=== PATIENT | female | born 1945 | race Caucasian/White ===

== ENCOUNTER 2024-05-21 07:46 | Inpatient (IN) | payer MEDICARE, SELFPAY ==
[2024-05-21] VITALS (14 sets, daily range): BP systolic 93–181; BP diastolic 62–130; PULSE 74–132; RESP 16–33; TEMP 36.2–38.7; O2SAT 92–98; BMI 33.0; BMI 31.5
--- NOTE | 2024-05-21 08:09 | EDS_ITS ---
HPI History of Present Illness Chief Complaint: [facility] Social History Smoking Status: Former smoker EXAM Physical Exam Const Vital Signs: 05/21/24 07:47 05/21/24 08:18 Temperature 101.7 F H Temperature Source Oral Pulse Rate 130 H Respiratory Rate 23 H Blood Pressure 150/130 H Blood Pressure Mean 136 Pulse Ox 92 Oxygen Delivery Method Room Air Room Air [facility] [place] N[place] Medical decision making narrative: HISTORY OF PRESENT ILLNESS: 78-year-old female presents concern for right leg redness and swelling. REVIEW OF SYSTEMS: Pertinent positives: Right leg redness and swelling Pertinent negatives: [] PHYSICAL EXAM: Nursing triage notes reviewed, Vital signs reviewed Constitutional: please see mdm HENT: MMM Eyes: Pupils equal round and reactive to light, Extraocular muscles intact Neck: No stridor, no JVD, full neck ROM Lungs: Clear to auscultation, No wheezing or rales. No increased work of breathing, no conversational dyspnea, no accessory muscle use, no nasal flaring. No respiratory distress noted Heart: Regular rate and rhythm, No murmurs, No rubs and No gallops, 2+ distal pulses (radial, femoral, posterior tibial) in all extremities Abdomen: Soft, there is no tenderness, rigidity, rebound or guarding, no obvious peritoneal signs, no palpable pulsatile abdominal masses, no auscultated abdominal bruit : No CVAT Extremities: No edema Neuro: Intact sensation L1-S1 dermatomal distributions. Intact 5/5 strength in hip flexion (T12-L3). Knee extension (L2-L4). Ankle dorsiflexion (L4-L5). Ankle plantar flexion (S1). Great toe extension (L5). 2+ patellar and Achilles DTRs. Skin: No rash or lesions noted MEDICAL DECISION MAKING: Chief Complaint: Right leg redness and swelling External records reviewed: Reviewed allergies, vital signs, home medications Factors affecting care: no records in [facility] Social determinants of health: none [] History obtained from others: none [] Consults: none [] [facility] Narrative: Patient was initially hypertensive with blood pressure 150/130, tachycardic with a pulse of 130, tachypneic with a respiratory 23 and febrile with a temperature of 101.7 saturating 92% on room air I considered the following differential diagnosis: Sepsis, cellulitis, abscess, necrotizing fasciitis I obtained a broad lab and imaging workup to further eluc idate etiology of the patient's Given the patient's initial tachycardia fever or tachypnea sepsis protocol was initiated including a 30 cc/kg bolus of ideal body weight. Lactate, blood and urine cultures were obtained. ALL IMAGES (IF OBTAINED) HAVE BEEN PERSONALLY REVIEWED AND INTERPRETED BY MYSELF. Initial EKG with A-fib with RVR, left axis deviation, no rate related changes with ST changes in inferior leads. No obvious STEMI Repeat EKG approximately 10 minutes later showed no dynamic changes I consulted cardiology at this time given concern for rate related ischemic changes. Discussed with Dr. Ann who noted likely changes rate related. In addition to this patient's history of no chest pain shortness of breath fatigue jaw pain dizziness lightheadedness is not consistent with myocardial ischemia. I suspect at this time the patient's elevated heart rate and rate related changes are secondary to fever and sepsis exacerbating underlying atrial fibrillation rather than a primary cardiac etiology. This should improve once fever is controlled, patient is resuscitated appropriately and antibiotics are started. DVT ultrasound negative X-ray of the right lower extremity of the tibia and fibula read and personally viewed myself shows no evidence of obvious bony abnormality specifically no evidence of osteomyelitis The patient and/or family, caregivers express understanding. The patient and/or family, caregivers agrees with the plan. Shared decision making: I will have a discussion with the patient and or visitors regarding risk/benefits of further testing or admission. They will be made aware of of the risk/benefits inherent in this decision they will be given the opportunity to voice understanding. Total critical care time today provided was at least 0 [] minutes. This excludes separately billable procedures. Critical care time (if documented) is secondary to the patient having high probability of clinically significant/life threatening deterioration in the patient's condition which required my urgent intervention. Impression: 1. Right lower extremity cellulitis 2. Sepsis 3. Dispo: [] This note was generated with [employer] dictation software. It may contain incorrect words, spelling, and punctuation that were not noted in review of the chart prior to signing. Radiography Diagnostic Testing: Clinical Impression(s) from Imaging Studies Tibia/Fibula X-Ray 05/21/24 08:40 IMPRESSION: Mild generalized soft tissue swelling around the calf and ankle. Electronically Signed: Wilfred Hdz MD at 9:15 EDT , Discharge Plan Triage Chief Complaint: Lower Extremity Injury ED Provider: Antelmo Churchill Dx/Rx/DC Orders Primary Care Provider: Jaylen Peralta Referrals: Jaylen Peralta MD [Primary Care Provider] - Print Language: Gabonese
--- NOTE | 2024-05-21 08:09 | EX.ED.DYSGE1 ---
HPI History of Present Illness Chief Complaint: Lower Extremity Injury [facility] Home Medications ?Medication ?Instructions ?Recorded ?Last Taken ?Type apixaban 5 mg tablet (Eliquis) 5 mg PO BID blood thinner 05/21/24 Unknown History diltiazem HCl 120 mg 120 mg PO DAILY blood pressure 05/21/24 Unknown History capsule,extended release 24 hr metoprolol tartrate 50 mg tablet 50 mg PO BID blood pressure 05/21/24 Unknown History torsemide 20 mg tablet 20 mg PO DAILY edema 05/21/24 Unknown History Allergy/AdvReac Type Severity Reaction Status Date / Time No Known Allergies Allergy Verified 05/21/24 12:42 Social History Smoking Status: Former smoker EXAM Physical Exam Const Vital Signs: 05/21/24 07:47 05/21/24 08:18 05/21/24 08:54 Temperature 101.7 F H 99.3 F H Temperature Source Oral Oral Pulse Rate 130 H 132 H Respiratory Rate 23 H 22 H Blood Pressure 150/130 H 181/97 H Blood Pressure Mean 136 125 Pulse Ox 92 93 Oxygen Delivery Method Room Air Room Air Room Air 05/21/24 09:51 05/21/24 09:53 05/21/24 11:00 Temperature 99.2 F H 99.2 F H 99.2 F H Temperature Source Oral Oral Pulse Rate 121 H 112 H 106 H Respiratory Rate 26 H 24 H 24 H Blood Pressure 148/91 H 163/97 H 130/81 H Blood Pressure Mean 110 119 97 Pulse Ox 93 98 93 Oxygen Delivery Method Room Air Room Air [facility] MDM MDM Narrative Medical decision making narrative: HISTORY OF PRESENT ILLNESS: 78-year-old female presents concern for right leg redness and swelling. REVIEW OF SYSTEMS: Pertinent positives: Right leg redness and swelling Pertinent negatives: Vomiting PHYSICAL EXAM: Nursing triage notes reviewed, Vital signs reviewed Constitutional: please see mdm HENT: MMM Eyes: Pupils equal round and reactive to light, Extraocular muscles intact Neck: No stridor, no JVD, full neck ROM Lungs: Clear to auscultation, No wheezing or rales. No increased work of breathing, no conversational dyspnea, no accessory muscle use, no nasal flaring. No respiratory distress noted Heart: Regular rate and rhythm, No murmurs, No rubs and No gallops, 2+ distal pulses (radial, femoral, posterior tibial) in all extremities Abdomen: Soft, there is no tenderness, rigidity, rebound or guarding, no obvious peritoneal signs, no palpable pulsatile abdominal masses, no auscultated abdominal bruit : No CVAT Extremities: No edema Neuro: Intact sensation L1-S1 dermatomal distributions. Intact 5/5 strength in hip flexion (T12-L3). Knee extension (L2-L4). Ankle dorsiflexion (L4-L5). Ankle plantar flexion (S1). Great toe extension (L5). 2+ patellar and Achilles DTRs. Skin: No rash or lesions noted MEDICAL DECISION MAKING: Chief Complaint: Right leg redness and swelling External records reviewed: Reviewed allergies, vital signs, home medications Factors affecting care: no records in [facility] Consults: Internal medicine (Dr. Mccain) [facility] Narrative: Patient was initially hypertensive with blood pressure 150/130, tachycardic with a pulse of 130, tachypneic with a respiratory 23 and febrile with a temperature of 101.7 saturating 92% on room air I considered the following differential diagnosis: Sepsis, cellulitis, abscess, necrotizing fasciitis I obtained a broad lab and imaging workup to further elucidate etiology of the patient's Given the patient's initial tachycardia fever or tachypnea sepsis protocol was initiated (blood cultures, urine urine culture, lactate) including a 30 cc/kg bolus of ideal body weight. Broad-spectrum antibiotics were given empirically (vancomycin and Zosyn) ALL IMAGES (IF OBTAINED) HAVE BEEN PERSONALLY REVIEWED AND INTERPRETED BY MYSELF. Initial EKG with A-fib with RVR, left axis deviation, no rate related changes with ST changes in inferior leads. No obvious STEMI Repeat EKG approximately 10 minutes later showed no dynamic changes. no STEMI I consulted cardiology at this time given concern for rate related ischemic changes. Discussed with Dr. Ann who noted likely changes rate related. In addition to this patient's history of no chest pain shortness of breath fatigue jaw pain dizziness lightheadedness is not consistent with myocardial ischemia. I suspect at this time the patient's elevated heart rate and rate related changes are secondary to fever and sepsis exacerbating underlying atrial fibrillation rather than a primary cardiac etiology. This should improve once fever is controlled, patient is resuscitated appropriately and antibiotics are started. DVT ultrasound negative X-ray of the right lower extremity of the tibia and fibula read and personally reviewed myself shows no evidence of obvious bony abnormality specifically no evidence of osteomyelitis Lactate is wnl indicating no end-organ hypoperfusion and/or hypoxia. CMP with noted hyponatremia, hypokalemia, hypercalcemia Urinalysis shows no evidence of urinary inflammation suggestive of UTI The synthesis of the patient's history, physical exam, labs images suggest likely sepsis from right lower extremity cellulitis. Patient was given broad-spectrum antibiotics. Vital signs improved after initial resuscitation included 30 cc/kg ideal body weight bolus. Patient is admitted to the PCU for further antimicrobial therapy and observation. The patient and/or family, caregivers express understanding. The patient and/or family, caregivers agrees with the plan. Shared decision making: I will have a discussion with the patient and or visitors regarding risk/benefits of further testing or admission. They will be made aware of of the risk/benefits inherent in this decision they will be given the opportunity to voice understanding. Total critical care time today provided was at least 30 minutes. This excludes separately billable procedures. Critical care time (if documented) is secondary to the patient having high probability of clinically significant/life threatening deterioration in the patient's condition which required my urgent intervention. Impression: 1. Right lower extremity cellulitis 2. Sepsis 3. Hypokalemia 4. Hypercalcemia 5. Hyponatremia Dispo: Admit to PCU This note was generated with [employer] dictation software. It may contain incorrect words, spelling, and punctuation that were not noted in review of the chart prior to signing. Lab Data Labs: Laboratory Results - last 24 hr 05/21/24 05/21/24 09:15 09:32 WBC 14.2 H RBC 4.55 Hgb 12.3 Hct 39.8 MCV 87.5 MCH 27.0 MCHC 30.9 L RDW Std Deviation 48.7 H RDW Coeff of Erica 15.3 H Plt Count 273 MPV 8.6 Immature Gran % (Auto) 0.800 Neut % (Auto) 91.7 H Lymph % (Auto) 2.7 L Kerr % (Auto) 4.7 Eos % (Auto) 0.0 Baso % (Auto) 0.1 Absolute Neuts (auto) 13.0 H Absolute Lymphs (auto) 0.38 L Nucleated RBC % 0 PT 24.0 H INR 2.2 APTT 41.5 H Sodium 135 L Potassium 2.8 L Chloride 94 L Carbon Dioxide 33.0 H Anion Gap 8 BUN 12 Creatinine 0.88 Estim Creat Clear Calc 51.38 Est GFR (MDRD) Af Amer 80 Est GFR (MDRD) Non-Af 66 BUN/Creatinine Ratio 13.6 Glucose 151 H Lactic Acid 1.9 Calcium 11.4 H Total Bilirubin 3.70 H Direct Bilirubin 1.32 H AST 30 ALT 37 Alkaline Phosphatase 130 H Total Creatine Kinase 53 Total Protein 6.5 Albumin 3.0 L Globulin 3.5 Albumin/Globulin Ratio 0.9 Urine Color Yellow Urine Clarity Clear Urine pH 7.0 Ur Specific [place] 1.010 Urine Protein Negative Urine Glucose (UA) Normal Urine Ketones 5 H Urine Occult Blood Negative Urine Nitrite Negative Urine Bilirubin Negative Urine Urobilinogen 4 H Ur Leukocyte Esterase Negative Urine RBC 0 SEEN Urine WBC 0 SEEN Ur Squamous Epith Cells 0 SEEN Urine Bacteria 0 SEEN Urine Mucus 0 SEEN Radiography Diagnostic Testing: Clinical Impression(s) from Imaging Studies Chest X-Ray 05/21/24 08:40 IMPRESSION: 1. No acute cardiopulmonary pathology. 2. Small right pleural effusion versus pleural thickening blunting the right costophrenic sulcus. 3. Cardiomegaly. 4. 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 Electronically Signed: Giles De La Rosa MD at 9:28 EDT Reading Location ID and State: [facility] / [place] , Service support , Tibia/Fibula X-Ray 05/21/24 08:40 IMPRESSION: Mild generalized soft tissue swelling around the calf and ankle. Electronically Signed: Wilfred Hdz MD at 9:15 EDT , Discharge Plan Disposition Disposition: Acute Care [facility] Discharge Date/Time: 05/21/24 12:25
--- NOTE | 2024-05-21 08:18 | EKG12_ITS ---
Test Reason : GENERAL Blood Pressure : / mmHG Vent. Rate : 125 BPM Atrial Rate : 000 BPM P-R Int : 000 ms QRS Dur : 100 ms QT Int : 288 ms P-R-T Axes : 000 -11 172 degrees QTc Int : 415 ms Atrial fibrillation with rapid ventricular response Inferior infarct , possibly acute Cannot rule out Anterior infarct , age undetermined Abnormal ECG Confirmed by Jhonatan Lovell ([id number]), primer expeditor and drier HERMINIA ANDERSON ([id number]) on 05/22/2024 9:24:12 AM Referred By: Confirmed By:Jhonatan Lovell
--- NOTE | 2024-05-21 08:18 | VDLE_ITS ---
Reason For Study: Right leg swelling RIGHT GSV is normal. CFV is compressible, spontaneous, competent and demonstrates pulsatile venous flow. FV is compressible, spontaneous, competent and demonstrates pulsatile venous flow. POP V is compressible, spontaneous, competent and demonstrates pulsatile venous flow. T/P Trunk is compressible. PTV is compressible. RT PerV is compressible. Procedure This is a venous duplex using B-mode, color flow and spectral Doppler. Exam performed portable in ED. A preliminary report was called and/or faxed to Dr. Churchill. VL/Venous Duplex US, Unilateral Interpretation Summary Deep veins of the right lower extremity are patent and compressible segmentally . There is no evidence of right lower extremity deep vein thrombosis. The right great sapheno us vein appears patent and compressible segmentally. Ordering Physician: Antelmo Churchill Referring Physician: Jaylen Peralta Performed By: Joy Mckinney RVT
--- NOTE | 2024-05-21 08:22 | NURSING ---
NO OLD EKGS
--- NOTE | 2024-05-21 08:40 | RAD_ITS ---
EXAM: XR CHEST, 1 VIEW CLINICAL INDICATION: sepsis TECHNIQUE: Frontal view of the chest. COMPARISON: No relevant prior studies available. FINDINGS: LUNGS AND PLEURAL SPACES: Mild pulmonary hypoinflation. Possible small right pleural effusion blunting the right posterior sulcus and causing minimal thickening of minor fissure. No pneumothorax. HEART: Cardiomegaly. MEDIASTINUM: Central airways and mediastinal contour are unremarkable. 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 No acute fracture. SOFT TISSUES: Unremarkable. VASCULATURE: Atherosclerotic calcifications along the thoracic aorta. RAD/Chest 1 View (Portable) IMPRESSION: 1. No acute cardiopulmonary pathology. 2. Small right pleural effusion versus pleural thickening blunting the right costophrenic sulcus. 3. Cardiomegaly. 4. 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 Electronically Signed: Giles De La Rosa MD at 9:28 EDT ,
--- NOTE | 2024-05-21 08:40 | RAD_ITS ---
STUDY: X-RAY - RIGHT TIBIA AND FIBULA REASON FOR EXAM: Female, 78 years old. Right leg redness, pain. TECHNIQUE: 3 views of the right tibia and fibula were obtained. COMPARISON: None. FINDINGS: Normal visualized tibia. Normal visualized fibula. There is no demonstrated acute fracture. There is mild generalized soft tissue swelling around the calf and ankle. There are atherosclerotic calcifications. RAD/Tibia & Fibula 2 Views IMPRESSION: Mild generalized soft tissue swelling around the calf and ankle. Electronically Signed: Wilfred Hdz MD at 9:15 EDT ,
--- NOTE | 2024-05-21 08:51 | NURSING ---
NO OLD EKGS
[2024-05-21] MEDS: NORMAL SALINE IV (09:15)
[2024-05-21] MEDS: VIAFLEX IV (09:15)
[2024-05-21] MEDS: Piperacil/Tazobactam 3.375 GM in 0.9% Normal Saline (50mL MB+) 50 ML IV (09:15)
[2024-05-21] MEDS: Acetaminophen 325 MG Tablet 650 MG PO (09:18)
[2024-05-21 09:26] LABS: Absolute Lymphocyte Count 0.38 X10^3/uL (0.83-4.51); Basophil# 0.02 X10^3/uL; Basophil% 0.1 % (0-1); Hematocrit 39.8 % (37-47); Hemoglobin 12.3 g/dL (12.0-15.0); Lymphocyte # 0.38 X10^3/ul (0.83-4.51); Lymphocyte % 2.7 % (19-41); Mean Corp Hgb Conc 30.9 g/dL (32-36); Mean Corpuscular Volume 87.5 fL (81-99); Mean Platelet Vol. 8.6 fl (6.2-12.0); Monocyte# 0.66 X10^3/uL; Monocyte% 4.7 % (0-10); NRBC Flagged by Analyzer 0 % (0-5); Neutrophil # 12.99 X10^3/uL (2.7-7.7); Neutrophil % 91.7 % (47-70); POSITIVE DIFFERENTIAL YES; Platelet Count 273 K/mm3 (150-450); RBC Distribution Width CV 15.3 % (11.6-14.6); RBC Distribution Width SD 48.7 fl (35.1-43.9); Red Blood Count 4.55 M/mm3 (4.2-5.4); White Blood Count 14.2 K/mm3 (4.4-11.0)
--- NOTE | 2024-05-21 09:35 | EKG12_ITS ---
Test Reason : GENERAL Blood Pressure : / mmHG Vent. Rate : 135 BPM Atrial Rate : 119 BPM P-R Int : 000 ms QRS Dur : 100 ms QT Int : 368 ms P-R-T Axes : 000 -03 181 degrees QTc Int : 552 ms Atrial fibrillation with rapid ventricular response Inferior infarct , possibly acute Cannot rule out Anterior infarct , age undetermined Abnormal ECG Confirmed by Jhonatan Lovell ([id number]), associate editor HERMINIA ANDERSON ([id number]) on 05/22/2024 9:24:40 AM Referred By: Confirmed By:Jhonatan Lovell
[2024-05-21 09:41] LABS: International Normalized Ratio 2.2
[2024-05-21 09:42] LABS: Partial Thromboplast Time 41.5 Seconds (24.1-36.2)
[2024-05-21] MEDS: Vancomycin HCl 1,250 MG in 0.9% Normal Saline (250mL Bag) 250 ML 167 MG IV (09:49)
[2024-05-21 09:50] LABS: Bacteria 0 SEEN /hpf (None Seen); Color, Urine Yellow (Yellow); Glucose, Dipstick Normal (Normal); Ketone-Dipstick 5 mg/dl (Negative); Leukocyte Esterase-Dipstick Negative /ul (Negative); Mucous, Urine 0 SEEN /hpf (<or=2+); Nitrite-Dipstick Negative (Negative); Occult Blood-Urine Negative /ul (Negative); Protein-Dipstick Negative (Negative); Red Blood Cells-Urine 0 SEEN /hpf (0-5); Squamous Epithelial Cells - UA 0 SEEN /hpf (5-10); Urine Bilirubin Dipstick Negative (Negative); Urine Clarity Clear (Clear); Urine Urobilinogen 4 mg/dl (Normal); White Blood Cells 0 SEEN /hpf (0-5)
[2024-05-21 09:54] LABS: Lactic Acid 1.9 mmol/L (0.4-1.9)
--- NOTE | 2024-05-21 09:55 | ED.RN ---
LAB CALLED POTASSIUM OF 2.8. DR SERRANO AWARE
[2024-05-21 09:56] LABS: ALB/GLOB Ratio 0.9 RATIO (0.9-2.4); AST(SGOT) 30 U/L (15-37); Alanine Aminotransfer ALT/SGPT 37 U/L (13-56); Alkaline Phosphatase 130 U/L (45-117); Anion Gap 8 (5-15); BUN 12 mg/dL (7-18); BUN/Creat Ratio 13.6 RATIO (10-20); CPK Total, Creatine Kinase 53 U/L (26-192); Calcium,Total 11.4 mg/dL (8.5-10.1); Chloride 94 mmol/L (98-107); Creatinine, Serum 0.88 mg/dL (0.55-1.02); EST Glomerular Filtration Rate 66 mL/min (>60); Est Glom Filt Rate - Afr Amer 80 mL/min (>60); Estimated Creatinine Clearance 51.38 ml/min; Globulin 3.5 g/dL (2.2-4.2); Glucose 151 mg/dL (74-106); Potassium 2.8 mmol/L (3.5-5.1); Protein, Total 6.5 g/dL (6.4-8.2); Sodium Level 135 mmol/L (136-145)
[2024-05-21] MEDS: Potassium Chloride Oral Tablet 20 MEQ 40 MEQ PO (10:03)
--- NOTE | 2024-05-21 11:06 | HP.PCM.HOS_ITS ---
HPI - General General Date of Admission: 05/21/24 Date of Service: 05/21/24 Chief Complaint: right leg redness and swelling HPI Narrative SUSHMA COOPER, is a 78 F with an extensive PMH as outlined who presents via the ED with a complaint of right lower extremity redness and swelling. She said her symptoms had been going on for just one day. She said she was recently admitted at [facility] recently, and said she was admitted there from swelling lower extremities. She says she does not remember the fine details of which she was treated for as she did not really pay much attention. She was discharged home and says she noticed yesterday that she had redness of her right lower extremity. The redness gradually worsened and her leg was also swollen and painful so she came into the ED. She denied any fever or chills, palpitations, nausea or vomiting or any other symptoms. Review of systems otherwise negative. She denied any trauma to her right lower extremity and denies any history of blood clots. Vitals in the ED were BP of 163/97, ND of 112, RR of 24 and temp of 99.2F. She was saturating at 98% on room air. CBC showed wbc of 14.2, Hb of 12.3, platelets of 273. INR was 2.2. Chemistry showed sodium of 135, potassium of 2.8 and bicarb of 33. Cr was 0.88. Total bilirubin was 3.7 and calcium was 11.4. Urinalysis showed no evidence of UTI. Xray of the tibia and fibula showed mild generalised soft tissue swelling around the calf and ankle. CXR showed no acute cardiopulmonary pathology and a small right pleural effusion vs pleural thickening blunting hte right costoprehnic sulcus, as well as cardiomegaly. She is being admitted to be managed for sepsis of the RLE. [facility] Home Medications ?Medication ?Instructions ?Recorded ?Last Taken ?Type apixaban 5 mg tablet (Eliquis) 5 mg PO BID blood thinner 05/21/24 Unknown History diltiazem HCl 120 mg 120 mg PO DAILY blood pressure 05/21/24 Unknown History capsule,extended release 24 hr metoprolol tartrate 50 mg tablet 50 mg PO BID blood pressure 05/21/24 Unknown History torsemide 20 mg tablet 20 mg PO DAILY edema 05/21/24 Unknown History Allergy/AdvReac Type Severity Reaction Status Date / Time No Known Allergies Allergy Verified 05/21/24 12:42 Social History Smoking Status: Former smoker ROS Constitutional Constitutional: Denies anorexia, chills, fatigue, fever(s), malaise or weakness Eyes Eyes: Denies change in vision ENT HEENT: Denies dysphagia or headache(s) Cardiovascular Cardiovascular: Denies chest pain, dyspnea on exertion, edema, lightheadedness, orthopnea, palpitations or paroxysmal nocturnal dyspnea Respiratory/Chest Respiratory/Chest: Denies cough, dyspnea, shortness of breath at rest or shortness of breath with exertion Gastrointestinal Gastrointestinal: Denies constipation, diarrhea, nausea or vomiting Genitourinary Genitourinary: Denies dysuria Musculoskeletal Musculoskeletal: Reports joint swelling; Denies back pain Neurologic Neurologic: Denies confusion, dizziness, focal weakness, headache(s) or numbness Psychiatric Psychiatric: Denies anxiety or depression Endocrine Endocrinology: Denies change in body appearance Hematologic/Lymphatic Hematologic/Lymphatic: Denies anemia Vital Signs Vital Signs Vital Signs: 05/21/24 07:47 05/21/24 08:18 05/21/24 08:54 Temperature 101.7 F H 99.3 F H Temperature Source Oral Oral Pulse Rate 130 H 132 H Respiratory Rate 23 H 22 H Blood Pressure 150/130 H 181/97 H Blood Pressure Mean 136 125 Pulse Ox 92 93 Oxygen Delivery Method Room Air Room Air Room Air 05/21/24 09:51 05/21/24 09:53 Temperature 99.2 F H 99.2 F H Temperature Source Oral Pulse Rate 121 H 112 H Respiratory Rate 26 H 24 H Blood Pressure 148/91 H 163/97 H Blood Pressure Mean 110 119 Pulse Ox 93 98 Oxygen Delivery Method Room Air Weight Weight: 180 lb 5.41 oz Body Mass Index (BMI) 33.0 Physical Exam Const alert, oriented x3 and no apparent distress General Appearance: cooperative HEENT normocephalic, head/scalp atraumatic, hearing grossly normal bilaterally, moist oral mucous membranes and oropharynx normal Mouth: oral and palatal mucosa normal Eyes PERRL, EOMs intact bilaterally and conjunctivae normal Neck no lymphadenopathy and supple Resp normal respiratory effort, no retractions, no use of accessory muscles and clear to auscultation bilaterally Cardio regular rate, regular rhythm, S1 normal heart sound, S2 normal heart sound and no murmurs GI normal to inspection, nondistended, normoactive bowel sounds, soft to palpation, non-tender and non-distended Extremity Extremity Narrative: RLE edematous, has erythema extending from the the ankle to mid kelley; has a few pustular areas; mildly tender to touch. Area outlined Neuro oriented x3, CN's II-XII intact bilaterally and moves all extremities Sensorium / Orientation: awake and alert Motor Exam: strength 5/5 throughout Psych affect normal Results Lab / Micro Data 05/21/24 09:15 05/21/24 09:15 Labs: Laboratory Results - last 24 hr 05/21/24 09:15: WBC 14.2 H, RBC 4.55, Hgb 12.3, Hct 39.8, MCV 87.5, MCH 27.0, M CHC 30.9 L, RDW Std Deviation 48.7 H, RDW Coeff of Erica 15.3 H, Plt Count 273, MPV 8.6, Immature Gran % (Auto) 0.800, Neut % (Auto) 91.7 H, Lymph % (Auto) 2.7 L, [place] % (Auto) 4.7, Eos % (Auto) 0.0, Baso % (Auto) 0.1, Absolute Neuts (auto) 13.0 H, Absolute Lymphs (auto) 0.38 L, Nucleated RBC % 0, PT 24.0 H, INR 2.2, A PTT 41.5 H, Sodium 135 L, Potassium 2.8 L, Chloride 94 L, Carbon Dioxide 33.0 H, Anion Gap 8, BUN 12, Creatinine 0.88, Estim Creat Clear Calc 51.38, Est GFR (MDRD) Af Amer 80, Est GFR (MDRD) Non-Af 66, BUN/Creatinine Ratio 13.6, Glucose 151 H, Lactic Acid 1.9, Calcium 11.4 H, Total Bilirubin 3.70 H, AST 30, ALT 37, Alkaline Phosphatase 130 H, Total Creatine Kinase 53, Total Protein 6.5, Albumin 3.0 L, Globulin 3.5, Albumin/Globulin Ratio 0.9 05/21/24 09:32: Urine Color Yellow, Urine Clarity Clear, Urine pH 7.0, Ur Specific [place] 1.010, Urine Protein Negative, Urine Glucose (UA) Normal, Urine Ketones 5 H, Urine Occult Blood Negative, Urine Nitrite Negative, Urine Bilirubin Negative, Urine Urobilinogen 4 H, Ur Leukocyte Esterase Negative, Urine RBC 0 SEEN, Urine WBC 0 SEEN, Ur Squamous Epith Cells 0 SEEN, Urine Bacteria 0 SEEN, Urine Mucus 0 SEEN Imaging Radiology Impression Chest X-Ray 05/21/24 08:40 IMPRESSION: 1. No acute cardiopulmonary pathology. 2. Small right pleural effusion versus pleural thickening blunting the right costophrenic sulcus. 3. Cardiomegaly. 4. 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 Electronically Signed: Giles De La Rosa MD at 9:28 EDT , Tibia/Fibula X-Ray 05/21/24 08:40 IMPRESSION: Mild generalized soft tissue swelling around the calf and ankle. Electronically Signed: Wilfred Hdz MD at 9:15 EDT , Assessment & Plan Assessment/Plan (1) Sepsis: QUALIFIERS: Sepsis acute organ dysfunction status: without acute organ dysfunction (2) Cellulitis of leg, right: PLAN: Plan #Sepsis due to cellulitis of the RLE * was tachypneic, febrile and tachycardic on admission. HR was up in the 130s systolic. She was also tachypneic * wbc is 14.2. * admit to PCU * after she was hydrated with IVF, her symptoms had resolved. * start on IV vancomycin. * get wound and blood cultures * cellulitic area outlined. * hydrate with IVF NS @ 125cc/hr * she is already on blood thinners; INR is 2.2, so low suspicion for DVT * #Cellulitis of the RLE: as above #Abnormal EKG * EKG done on admission showed some ST elevations in the inferior leads it was read as critical alert ST elevated [place]. ED doctor did discuss with the field placement director Dr Ann who reviewed the images and did not think that patient had ST elevation [place] of the inferior region. * Patient also denies any chest pain. Will check troponins and cycle. * #Hypokalemia: Potassium was 2.8. Replace aggressively and trend. #Elevated bilirubin * Total bilirubin is 3.7 and is mainly a direct bilirubinemia which is 1.32. AST and ALT are within normal limits though ALP slightly elevated at 130. * She denies any history of any liver disease. Will check hepatitis panel and liver ultrasound. * Will trend liver enzymes. Hold all hepatotoxic medications. * #Atrial fibrillation: on metoprolol and cardizem. On eliquis. Will continue DVT prophylaxis; already on eliquis Code status: full code * Patient counseled extensively about different types of CODE STATUS including full code, DNR CCA and DNR CCA. * Patient elects to be full code. * Total [id number] time 17 minutes. Charges/Coding Visit Charges Inpatient E&M: 37272 Init Hosp L3 Procedures Hospitalists Procedures: 08818 Advncd Care Plan 30 Min
--- NOTE | 2024-05-21 13:22 | US_ITS ---
STUDY: ABDOMINAL ULTRASOUND - RIGHT UPPER QUADRANT REASON FOR VISIT: Female, 78 years old elevated liver enzymes TECHNIQUE: Ultrasound evaluation of the right upper quadrant was performed with real-time and static lang-scale imaging. TECHNICAL QUALITY: Adequate. COMPARISON: None. FINDINGS: Liver: The liver measures 16.1 cm. There is normal echogenicity of the liver. The bile ducts are within normal limits. There is hepatic color flow. The direction of portal flow is hepatopetal. There is no demonstrated mass lesion. Gallbladder: Normal distended gallbladder. The gallbladder wall measures 2 mm. There is a negative sonographic Neves''s sign. There is no pericholecystic fluid. There are multiple echogenic structures within the gallbladder, consistent with multiple gallstones. Common Bile Duct (C.B.D.): The common bile duct measures 7 mm. Pancreas: Normal size of the head, body and tail of the pancreas. There is normal echogenicity of the pancreas. There is no demonstrated pancreatic mass or cyst. Right Kidney: Normal size of the right kidney. The right kidney measures 12.1 cm. Normal renal cortex. The right cortex measures 1.4 cm. There is no demonstrated renal mass or cyst. There is no right hydronephrosis. US/Liver IMPRESSION: Cholelithiasis. Electronically Signed: Antonio Funez MD at 13:01 EDT ,
[2024-05-21] MEDS: 0.9% Normal Saline (1000mL) 1,000 ML 125 ML IV (13:52)
[2024-05-21] MEDS: 0.9% Saline Lock 10 ML Syringe IV (13:52)
[2024-05-21] MEDS: Vancomycin HCl 750 MG in 0.9% Normal Saline (250mL Bag) 250 ML 250 MG IV (13:55)
[2024-05-21 14:02] LABS: Bilirubin, Direct 1.32 mg/dL (0.00-0.30)
--- NOTE | 2024-05-21 14:25 | PCM.RX.CS ---
Consult Antibiotic Management Pharmacy has been consulted to manage selected antibiotic: Vancomycin Type of Intervention Type of Consult: New start Suspected Infection Suspected Infection: Sepsis and Skin/Soft tissue Prior Doses of Antibiotics Prior Doses of Antibiotics Received/Current Regimen: received vanc 1250mg IV x1 in E.R. starting at 09:49 today Labs Labs: Sodium 135 mmol/L (136-145) L 05/21/24 09:15 Potassium 2.8 mmol/L (3.5-5.1) L 05/21/24 09:15 Chloride 94 mmol/L (98-107) L 05/21/24 09:15 Carbon Dioxide 33.0 mmol/L (21.0-32.0) H 05/21/24 09:15 Anion Gap 8 (5-15) 05/21/24 09:15 BUN 12 mg/dL (7-18) 05/21/24 09:15 Creatinine 0.88 mg/dL (0.55-1.02) 05/21/24 09:15 Est GFR (MDRD) Af Amer 80 mL/min (>60) 05/21/24 09:15 Est GFR (MDRD) Non-Af 66 mL/min (>60) 05/21/24 09:15 BUN/Creatinine Ratio 13.6 RATIO (10-20) 05/21/24 09:15 Glucose 151 mg/dL (74-106) H 05/21/24 09:15 Dosing Weight Weight used for dosin.7 kg Estimated Creatinine Clearance Estimated Creatinine Clearance: 51 ml/min Goal Trough Goal Trough: 15-20 mcg/mL Pharmacy Plan for Drug Dosing Pharmacy Plan for Drug Dosing: A load initial dose (25mg/kg) was ordered which would have been 2000mg. However, the patient already received 1250mg IV x1 in E.R. so will start the maintenance dose of 750mg IV q12h as soon as possible to make up the difference for the initial dose total of 2000mg. Will order a trough to be drawn before the 4th dose of 750mg. Pharmacy Service will continue to monitor and adjust dosing as required. Follow-Up Labs Follow-Up Labs: Trough: Vancomycin Date/Time Labs Ordered Labs to be done on [date and time ordered]: 05/23/24 01:30
[2024-05-21] MEDS: Metoprolol Tartrate 50 MG Tablet PO (16:34)
--- NOTE | 2024-05-21 17:18 | NURSING ---
PICC placement in progress
[2024-05-21] MEDS: Morphine 2 MG/ML Syringe IV (17:40)
--- NOTE | 2024-05-21 17:50 | RAD_ITS ---
STUDY: X-RAY CHEST REASON FOR EXAM: Female, 78 years old. PICC placement TECHNIQUE: Single AP portable view of the chest. COMPARISON: May 21, 2024, earlier the same day FINDINGS: PICC on the right extends to the right atrium. There is right lower lung atelectasis. There is small right pleural effusion. There is moderate cardiac enlargement. Normal mediastinum and mitra. Normal visualized pulmonary arteries. Normal visualized aortic arch and descending thoracic aorta. There is demineralization of the osseous structures. There is degenerative change of the spine and right shoulder. There is no demonstrated abnormality of the visualized soft tissue structures of the upper abdomen. RAD/CXR for Line Placement IMPRESSION: Catheter placement. No pneumothorax. Right lower lung atelectasis and small pleural effusion. Electronically Signed: Alvaro Kramer MD at 18:48 EDT ,
[2024-05-21] MEDS: APIXABAN 5 MG TABLET PO (20:18)
[2024-05-22] MEDS: 0.9% Normal Saline (1000mL) 1,000 ML 125 ML IV ×3 (00:33→21:55)
[2024-05-22] MEDS: Vancomycin HCl 750 MG in 0.9% Normal Saline (250mL Bag) 250 ML 250 MG IV ×2 (00:59→13:59)
[2024-05-22 03:00] VITALS: BP 130/70; PULSE 74; RESP 18; TEMP 36.4; O2SAT 93
[2024-05-22 06:52] LABS: Absolute Neutrophil Count 10.5 X10^3/uL (2.0-7.7); Basophil# 0.02 X10^3/uL; Basophil% 0.1 % (0-1); Hematocrit 35.5 % (37-47); Hemoglobin 10.9 g/dL (12.0-15.0); Lymphocyte % 8.2 % (19-41); Mean Corp Hgb Conc 30.7 g/dL (32-36); Mean Corpuscular Volume 88.1 fL (81-99); Mean Platelet Vol. 9.6 fl (6.2-12.0); Monocyte# 1.64 X10^3/uL; Monocyte% 12.2 % (0-10); NRBC Flagged by Analyzer 0 % (0-5); Neutrophil # 10.53 X10^3/uL (2.7-7.7); Neutrophil % 78.5 % (47-70); POSITIVE DIFFERENTIAL YES; Platelet Count 296 K/mm3 (150-450); RBC Distribution Width CV 15.4 % (11.6-14.6); RBC Distribution Width SD 49.8 fl (35.1-43.9); Red Blood Count 4.03 M/mm3 (4.2-5.4); White Blood Count 13.4 K/mm3 (4.4-11.0)
[2024-05-22 06:54] LABS: Differential Indicated SCAN CRITERIA MET
[2024-05-22 07:19] LABS: Anion Gap 7 (5-15); BUN 23 mg/dL (7-18); BUN/Creat Ratio 15.5 RATIO (10-20); Calcium,Total 9.9 mg/dL (8.5-10.1); Chloride 101 mmol/L (98-107); Creatinine, Serum 1.48 mg/dL (0.55-1.02); EST Glomerular Filtration Rate 36 mL/min (>60); Est Glom Filt Rate - Afr Amer 44 mL/min (>60); Estimated Creatinine Clearance 31.01 ml/min; Glucose 116 mg/dL (74-106); Potassium 3.7 mmol/L (3.5-5.1); Sodium Level 135 mmol/L (136-145)
[2024-05-22 08:18] LABS: AST(SGOT) 47 U/L (15-37); Alanine Aminotransfer ALT/SGPT 41 U/L (13-56); Albumin, Serum 2.3 g/dL (3.2-5.0); Alkaline Phosphatase 113 U/L (45-117); Bilirubin, Direct 0.62 mg/dL (0.00-0.30); Globulin 3.2 g/dL (2.2-4.2); Protein, Total 5.5 g/dL (6.4-8.2)
[2024-05-22 09:41] LABS: Differential Comment SCANNED
[2024-05-22 09:42] LABS: Platelet Estimate ADEQUATE (ADEQ); Red Cell Morphology NORM C+C NORMAL (NORM C&C)
[2024-05-22 09:55] VITALS: BP 148/93; PULSE 95; RESP 16; TEMP 36.3; O2SAT 95
[2024-05-22 09:56] VITALS: BP 148/93; PULSE 95
[2024-05-22] MEDS: Metoprolol Tartrate 50 MG Tablet PO ×2 (09:56→20:38)
[2024-05-22] MEDS: Furosemide 40 MG Tablet PO (09:57)
[2024-05-22] MEDS: APIXABAN 5 MG TABLET PO ×2 (09:57→20:39)
[2024-05-22] MEDS: dilTIAZem CD 120 MG Capsule PO (09:57)
--- NOTE | 2024-05-22 10:04 | WOUNDNOTE ---
Was asked to see patient for redness to the right lower leg. there is some serous drainage noted on the chux pad under the leg. do not see any open area to culture at this time. pt states the she just got a new Corgi puppy. pt states the puppy will sometimes scratch her leg. there is some redness noted to the right lower leg that appears to be improving according to the skin markings. pt with moderate edema bilaterally. gently washed legs with soap and water. pat dry. applied TIMO wraps to bilateral lower legs. pt tolerated well.
--- NOTE | 2024-05-22 10:26 | WOUNDNOTE ---
wound photo: right lower leg
--- NOTE | 2024-05-22 10:36 | PN_ITS ---
Subjective Subjective Patient seen and examined. She says she feels much better. She felt the redness of her RLE had improved. Review of systems was otherwise negative. Objective Data Objective Data Vital Signs: Vital Signs Temp Pulse Resp BP Pulse Ox O2 Del Method 97.3 F L 95 16 148/93 H 95 Room Air 05/22/24 09:55 05/22/24 09:56 05/22/24 09:55 05/22/24 09:56 05/22/24 09:55 05/22/24 09:55 Oxygen Delivery Method Room Air Weight: 177 lb 15.984 oz Body Mass Index (BMI) 31.5 Intake & Output: Intake and Output for Last 24 Hours 05/20/24 05/21/24 05/22/24 23:59 23:59 23:59 Intake Total 1941. / 965 / 965 Balance 965 / 965 Lab / Micro Data 05/22/24 06:11 05/22/24 06:11 Labs: Laboratory Results - last 24 hr 05/21/24 09:15: Direct Bilirubin 1.32 H 05/22/24 06:11: WBC 13.4 H, RBC 4.03 L, Hgb 10.9 L, Hct 35.5 L, MCV 88.1, MCH 27.0, MCHC 30.7 L, RDW Std Deviation 49.8 H, RDW Coeff of Erica 15.4 H, Plt Count 296, MPV 9.6, Immature Gran % (Auto) 1.000 H, Neut % (Auto) 78.5 H, Lymph % (Auto) 8.2 L, [place] % (Auto) 12.2 H, Eos % (Auto) 0.0, Baso % (Auto) 0.1, A bsolute Neuts (auto) 10.5 H, Absolute Lymphs (auto) 1.10, Nucleated RBC % 0, Differential Comment SCANNED, Diff Path Review December, Platelet Estimate ADEQUATE, RBC Morphology NORM C+C, Sodium 135 L, Potassium 3.7, Chloride 101, Carbon Dioxide 27.0, Anion Gap 7, BUN 23 H, Creatinine 1.48 H, Estim Creat Clear Calc 31.01, Est GFR (MDRD) Af Amer 44 L, Est GFR (MDRD) Non-Af 36 L, BUN/Creatinine Ratio 15.5, Glucose 116 H, Calcium 9.9, Total Bilirubin 2.00 H, D irect Bilirubin 0.62 H, AST 47 H, ALT 41, Alkaline Phosphatase 113, Total Protein 5.5 L, Albumin 2.3 L, Globulin 3.2 Radiography Diagnostic Testing: Radiology Impression Venous Doppler Study 05/21/24 08:18 Interpretation Summary Deep veins of the right lower extremity are patent and compressible segmentally. There is no evidence of right lower extremity deep vein thrombosis. The right great saphenous vein appears patent and compressible segmentally. Ordering Physician: Antelmo Churchill Referring Physician: Jaylen Peralta Performed By: Joy Mckinney, [place] Chest X-Ray 05/21/24 17:50 IMPRESSION: Catheter placement. No pneumothorax. Right lower lung atelectasis and small pleural effusion. Electronically Signed: Alvaro Kramer MD at 18:48 EDT , Physical Exam Const alert, oriented x3 and no apparent distress General Appearance: cooperative HEENT normocephalic, head/scalp atraumatic, hearing grossly normal bilaterally, moist oral mucous membranes and oropharynx normal Eyes PERRL, EOMs intact bilaterally and conjunctivae normal Neck no lymphadenopathy and supple Resp normal respiratory effort, normal air movement, no retractions, no use of accessory muscles and clear to auscultation bilaterally Cardio regular rate, regular rhythm, S1 normal heart sound, S2 normal heart sound and no murmurs GI normal to inspection, nondistended, normoactive bowel sounds, soft to palpation, non-tender and non-distended Extremity Extremity Narrative: RLE edema and redness as well as swelling has improved slightly; it extends from the the ankle to mid kelley; has a few pustular areas; mildly tender to touch. Area outlined Skin Skin Narrative: as under extremities Neuro oriented x3, CN's II-XII intact bilaterally and moves all extremities Sensorium / Orientation: awake and alert Motor Exam: strength 5/5 throughout Psych affect normal Appearance: appropriate Assessment & Plan Assessment/Plan (1) Sepsis: QUALIFIERS: Sepsis acute organ dysfunction status: without acute organ dysfunction (2) Cellulitis of leg, right: PLAN: Plan #Sepsis due to cellulitis of the RLE * WBC has trended down slightly today to 13.4 from 14.2 on admission. * Swelling has improved slightly. Continue IV vancomycin * Apply Bridger wraps to lower extremity * Duplex of lower extremities showed no evidence of DVT * #Cellulitis of the RLE: as above #Abnormal EKG * EKG done on admission showed some ST elevations in the inferior leads it was read as critical alert ST elevated [place]. ED doctor did discuss with the legal paraprofessional Dr Ann who reviewed the images and did not think that patient had ST elevation [place] of the inferior region. * Patient also denies any chest pain. * will monitor * #Hypokalemia: resolved. Potassium is 3.7. #Elevated bilirubin * total bilirubin is down to 2,. from 3.7 yesterday. * Direct biliruibin is also down to 0.62. * hepatitis panel pending. * liver ultrasound done, read is pending. * * #Atrial fibrillation: on metoprolol and cardizem. On eliquis. DVT prophylaxis; already on eliquis Code status: full code * Charges/Coding Visit Charges Inpatient E&M: 09865 Subs Hosp L2
--- NOTE | 2024-05-22 11:40 | CASEMGMT ---
WILL LOGAN Assessment: Face to Face with pt for initial transition planning/care coordination assessment. WILL LOGAN introduced self and role at [facility], pt voices understanding and consents to assessment. Pt is A&O x3 and answers most questions appropriately at this time. Pt did discuss being in the hospital longer than she actually has been and as RN DESMOND had more communication with pt noted that pt may some confusion. Pt states she is very upset as someone stated she had Alzheimers lastnight and she reacted to this. Pt states she does not have Alzheimers, she just has a fun life . Care providers, pharmacy, and demographics verified/updated. Admitting Dx: sepsis Strata Score: 1 PCP:Fabian Specialists:Denies Preferred Pharmacy:[facility] Insurance: [employer] Prescription Benefit: yes LNOK: Macey Brown, dtr Living Arrangements: Pt lives with dtr in a single story home with a ramp to enter in the front. Pt states that she is I in ADLs and shares IADL tasks with her dtr. 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 Pt denies concerns at home. Transportation: Pt drives self short distances and denies concerns with transportation. Pt dtr also transports pt. DME:shower chair, 3 canes and standard walker HHC/SNF: Denies hx of Pt states no concerns with going home at time of dc. Noted board stated pt was a 2 assist. Pt states she can ambulate but has not been oob. Therapy is ordered to see pt. Pt denies having any open wounds with her cellulitis. Pt states no further concerns/needs. CM to follow. Advised pt to ask CM if any further question/concerns/needs arise, voices understanding. Handoff given to PAYABLE MANAGER CM. Pt Goal: Home Plan: Home pending therapy evals and recommendations Chelsea SOLIS CM
[2024-05-22] MEDS: 0.9% Saline Lock 10 ML Syringe IV (14:08)
[2024-05-22 16:02] VITALS: BP 131/78; PULSE 70; RESP 16; TEMP 36.4; O2SAT 95
[2024-05-22 20:32] VITALS: BP 130/80; PULSE 68; RESP 14; TEMP 36.7; O2SAT 94
[2024-05-22 20:38] VITALS: PULSE 70
[2024-05-22] MEDS: Vancomycin Trough/Random Due 1 LAB MC (21:56)
[2024-05-23] VITALS (7 sets, daily range): BP systolic 110–147; BP diastolic 68–97; PULSE 70–84; RESP 15–21; TEMP 36.4–36.7; O2SAT 95–97
[2024-05-23 02:01] LABS: Vancomycin, Trough Level 29.8 ug/mL (5.0-15.0)
--- NOTE | 2024-05-23 02:37 | PCM.RX.CS ---
Consult Antibiotic Management Pharmacy has been consulted to manage selected antibiotic: Vancomycin Type of Intervention Type of Consult: Follow-up Suspected Infection Suspected Infection: Sepsis Labs Labs: Sodium 135 mmol/L (136-145) L 05/22/24 06:11 Potassium 3.7 mmol/L (3.5-5.1) 05/22/24 06:11 Chloride 101 mmol/L (98-107) 05/22/24 06:11 Carbon Dioxide 27.0 mmol/L (21.0-32.0) 05/22/24 06:11 Anion Gap 7 (5-15) 05/22/24 06:11 BUN 23 mg/dL (7-18) H 05/22/24 06:11 Creatinine 1.48 mg/dL (0.55-1.02) H 05/22/24 06:11 Est GFR (MDRD) Af Amer 44 mL/min (>60) L 05/22/24 06:11 Est GFR (MDRD) Non-Af 36 mL/min (>60) L 05/22/24 06:11 BUN/Creatinine Ratio 15.5 RATIO (10-20) 05/22/24 06:11 Glucose 116 mg/dL (74-106) H 05/22/24 06:11 Vancomycin Trough 29.8 ug/mL (5.0-15.0) H 05/23/24 01:30 Microbiology Microbiology: Microbiology 05/21/24 09:32 Urine, Random Urine Culture - Preliminary Culture exhibits no growth. Goal Trough Goal Trough: 15-20 mcg/mL Pharmacy Plan for Drug Dosing Pharmacy Plan for Drug Dosing: VANCOMYCIN LEVEL RECEIVED Current Vancomycin Dose: 750mg Q12H Number of Doses Received: 750mg x3 Vancomycin Level: 29.8 Hours Since Last Dose: 11.5 Renal Function: sCr 1.48 Renal Function Trend: sCr elevated since admission Lab/Micro: pending Vancomycin Plan/Comments: HOLD Vancomycin due to SUPRAtherapeutic trough Pending Level: Random Vancomycin level with AM labs 05/24/24 Pharmacy Service will continue to monitor and adjust dosing as required. Date/Time Labs Ordered Labs to be done on [date and time ordered]: Random Vancomycin level @ 0600 05/24/24
[2024-05-23 06:14] LABS: Absolute Lymphocyte Count 1.13 X10^3/uL (0.83-4.51); Absolute Neutrophil Count 10.8 X10^3/uL (2.0-7.7); Basophil# 0.02 X10^3/uL; Basophil% 0.1 % (0-1); Eosinophil# 0.01 X10^3/uL; Eosinophils% 0.1 % (0-5); Hematocrit 32.4 % (37-47); Hemoglobin 9.9 g/dL (12.0-15.0); Lymphocyte # 1.13 X10^3/ul (0.83-4.51); Lymphocyte % 8.4 % (19-41); Mean Corp Hgb Conc 30.6 g/dL (32-36); Mean Corpuscular Hgb 27.3 pg (27.0-32.0); Mean Corpuscular Volume 89.5 fL (81-99); Mean Platelet Vol. 9.2 fl (6.2-12.0); Monocyte# 1.41 X10^3/uL; Monocyte% 10.4 % (0-10); NRBC Flagged by Analyzer 0 % (0-5); Neutrophil # 10.75 X10^3/uL (2.7-7.7); Neutrophil % 79.5 % (47-70); Platelet Count 321 K/mm3 (150-450); RBC Distribution Width CV 15.4 % (11.6-14.6); RBC Distribution Width SD 50.2 fl (35.1-43.9); Red Blood Count 3.62 M/mm3 (4.2-5.4); White Blood Count 13.5 K/mm3 (4.4-11.0)
[2024-05-23 06:41] LABS: Anion Gap 7 (5-15); BUN 37 mg/dL (7-18); BUN/Creat Ratio 16.1 RATIO (10-20); Calcium,Total 8.5 mg/dL (8.5-10.1); Chloride 109 mmol/L (98-107); EST Glomerular Filtration Rate 22 mL/min (>60); Est Glom Filt Rate - Afr Amer 26 mL/min (>60); Estimated Creatinine Clearance 19.96 ml/min; Glucose 119 mg/dL (74-106); Potassium 3.1 mmol/L (3.5-5.1); Sodium Level 138 mmol/L (136-145)
--- NOTE | 2024-05-23 08:25 | US_ITS ---
INDICATION: LOKI EXAMINATION: Ultrasound US Kidney(s) complete (eg, kidneys and bladder) TECHNIQUE: Germain scale and color doppler images were obtained of the kidneys. COMPARISON: No relevant prior comparison study available FINDINGS: RIGHT KIDNEY: The right kidney measures 11.8 cm in length. There is no hydronephrosis. There is trace perinephric fluid. No shadowing calculus, focal lesion or perinephric collection is demonstrated. LEFT KIDNEY: The left kidney measures 10.9 cm in length. There is no hydronephrosis. There is a 1.1 x 1.0 cm left renal cyst. There is trace perinephric fluid. No shadowing calculus or perinephric collection is demonstrated. URINARY BLADDER: The urinary bladder volume measures 381 cc. No acute abnormality. US/Kidney and Bladder IMPRESSION: No hydronephrosis. 1.1 x 1.0 cm left renal cyst. Electronically Signed: Sumi Tsai MD at 13:58 EDT ,
[2024-05-23 09:48] LABS: Pathologist Review Reviewed
[2024-05-23] MEDS: Metoprolol Tartrate 50 MG Tablet PO ×2 (10:07→21:10)
[2024-05-23] MEDS: APIXABAN 5 MG TABLET PO ×2 (10:11→21:10)
[2024-05-23] MEDS: Potassium Chloride Oral Tablet 20 MEQ 40 MEQ PO (10:12)
[2024-05-23] MEDS: dilTIAZem CD 120 MG Capsule PO (10:12)
[2024-05-23] MEDS: 0.9% Normal Saline (1000mL) 1,000 ML 125 ML IV ×2 (10:33→19:30)
--- NOTE | 2024-05-23 11:32 | PN_ITS ---
Subjective Subjective Patient seen and examined. She says she feels well today and was hoping to go home. Review of systems otherwise negative. However her creatinine has trended up was 2.3 today. Her bank trough is also elevated at 29. Vancomycin discontinued. Objective Data Objective Data Vital Signs: Vital Signs Temp Pulse Resp BP Pulse Ox O2 Del Method 97.5 F L 84 20 H 132/82 H 97 Room Air 05/23/24 08:15 05/23/24 10:07 05/23/24 08:15 05/23/24 10:07 05/23/24 08:15 05/23/24 08:15 Oxygen Delivery Method Room Air Weight: 177 lb 15.984 oz Body Mass Index (BMI) 31.5 Intake & Output: Intake and Output for Last 24 Hours 05/21/24 05/22/24 05/23/24 23:59 23:59 23:59 Intake Total 1941.1941.08 2945 / 2945 1060 / 1060 Output Total 100 / 100 Balance 1941.1941.08 2945 / 2945 960 / 960 Lab / Micro Data 05/23/24 06:01 05/23/24 06:01 Labs: Laboratory Results - last 24 hr 05/22/24 06:11: Diff Path Review Reviewed 05/23/24 01:30: Vancomycin Trough 29.8 H 05/23/24 06:01: WBC 13.5 H, RBC 3.62 L, Hgb 9.9 L, Hct 32.4 L, MCV 89.5, MCH 27.3, MCHC 30.6 L, RDW Std Deviation 50.2 H, RDW Coeff of Erica 15.4 H, Plt Count 321, MPV 9.2, Immature Gran % (Auto) 1.500 H, Neut % (Auto) 79.5 H, Lymph % (Auto) 8.4 L, Bell % (Auto) 10.4 H, Eos % (Auto) 0.1, Baso % (Auto) 0.1, A bsolute Neuts (auto) 10.8 H, Absolute Lymphs (auto) 1.13, Nucleated RBC % 0, Sodium 138, Potassium 3.1 L, Chloride 109 H, Carbon Dioxide 23.0, Anion Gap 7, B UN 37 H, Creatinine 2.30 H, Estim Creat Clear Calc 19.96, Est GFR (MDRD) Af Amer 26 L, Est GFR (MDRD) Non-Af 22 L, BUN/Creatinine Ratio 16.1, Glucose 119 H, Calcium 8.5 Micro: Microbiology 05/21/24 09:32 Urine, Random Urine Culture - Final Culture exhibits no growth. 05/21/24 09:15 Blood Culture (Wb) - Anticubital Left Blood Culture - Preliminary No growth in 48 hours. Physical Exam Const alert, oriented x3 and no apparent distress General Appearance: cooperative HEENT normocephalic, head/scalp atraumatic, hearing grossly normal bilaterally, moist oral mucous membranes and oropharynx normal Eyes PERRL, EOMs intact bilaterally and conjunctivae normal Neck no lymphadenopathy and supple Resp normal respiratory effort, normal air movement, no retractions, no use of accessory muscles and clear to auscultation bilaterally Cardio regular rate, regular rhythm, S1 normal heart sound, S2 normal heart sound and no murmurs GI normal to inspection, nondistended, normoactive bowel sounds, soft to palpation, non-tender and non-distended Extremity Extremity Narrative: both LEs wrapped in bandage Skin Skin Narrative: as under extremities Neuro oriented x3, CN's II-XII intact bilaterally and moves all extremities Sensorium / Orientation: awake and alert Motor Exam: strength 5/5 throughout Psych affect normal Appearance: appropriate Assessment & Plan Assessment/Plan (1) Sepsis: QUALIFIERS: Sepsis acute organ dysfunction status: without acute organ dysfunction (2) Cellulitis of leg, right: PLAN: Plan #Sepsis due to cellulitis of the RLE * WBC today is 13.5. * Swelling has improved slightly. Continue IV vancomycin * Apply Bridger wraps to lower extremity * Duplex of lower extremities showed no evidence of DVT * Patient did appear to have some pustular areas of the lower extremity. With as below drainage of pus in the area of the culture. Will place patient on IV Unasyn. #LOKI * Creatinine today is up to 2.3. Was 1.48 yesterday. Vancomycin trough level was also elevated at 29.8 * This is likely the cause of the worsening of the kidney function. Vancomycin discontinued. * Hydrate gently with IV fluids. Check urine electrolytes and renal ultrasound but read is pending. * Trend creatinine and if it goes upwards further we will consult nephrology * #Cellulitis of the RLE: as above #Abnormal EKG * EKG done on admission showed some ST elevations in the inferior leads it was read as critical alert ST elevated MD. ED doctor did discuss with the marketing project manager Dr Ann who reviewed the images and did not think that patient had ST elevation MD of the inferior region. * Patient also denies any chest pain. * will monitor * #Hypokalemia: resolved. Potassium is 3.7. #Elevated bilirubin * liver profile is pending today * hepatitis panel is still pending. * liver ultrasound done, read is pending. * * #Atrial fibrillation: on metoprolol and cardizem. On eliquis. DVT prophylaxis; already on eliquis Code status: full code * Charges/Coding Visit Charges Inpatient E&M: 95928 Subs Hosp L2
--- NOTE | 2024-05-23 11:39 | WOUNDNOTE ---
In to reassess bilateral lower legs. there was a moderate amount of serous drainage noted from the right lower leg. the redness has improved. still no open areas noted. must be pinpoint open areas that are draining. washed legs and feet with soap and water. pat dry. placed dry dressings, ABD pads, and wrapped with kerlix. reapplied the TIMO wraps. pt tolerated well.
[2024-05-23 12:13] LABS: AST(SGOT) 22 U/L (15-37); Alanine Aminotransfer ALT/SGPT 30 U/L (13-56); Albumin, Serum 1.9 g/dL (3.2-5.0); Alkaline Phosphatase 97 U/L (45-117); Bilirubin, Direct 0.48 mg/dL (0.00-0.30); Globulin 2.8 g/dL (2.2-4.2); Protein, Total 4.7 g/dL (6.4-8.2)
[2024-05-23 13:19] LABS: Urea Nitrogen, Urine 688 mg/dL (NO RANGE EST.)
[2024-05-23] MEDS: Ampicillin/Sulbactam 3 GM in 0.9% Normal Saline (100mL MB+) 100 ML IV ×2 (13:19→21:12)
--- NOTE | 2024-05-23 19:03 | NURSING ---
Reviewed charting with Josi Purdy RN
[2024-05-24] VITALS (7 sets, daily range): BP systolic 102–154; BP diastolic 58–95; PULSE 70–79; RESP 18–19; TEMP 36.2–36.6; O2SAT 94–97
[2024-05-24 06:29] LABS: Hemoglobin 10.4 g/dL (12.0-15.0); Mean Corp Hgb Conc 31.5 g/dL (32-36); Mean Corpuscular Hgb 27.5 pg (27.0-32.0); Mean Corpuscular Volume 87.3 fL (81-99); Mean Platelet Vol. 9.2 fl (6.2-12.0); POSITIVE COUNT YES; POSITIVE MORPHOLOGY YES; Platelet Count 489 K/mm3 (150-450); RBC Distribution Width CV 15.4 % (11.6-14.6); RBC Distribution Width SD 49.1 fl (35.1-43.9); Red Blood Count 3.78 M/mm3 (4.2-5.4); White Blood Count 16.8 K/mm3 (4.4-11.0)
[2024-05-24 06:32] LABS: Differential Indicated MANUAL DIFF
[2024-05-24 07:13] LABS: Anion Gap 8 (5-15); BUN 63 mg/dL (7-18); BUN/Creat Ratio 17.4 RATIO (10-20); Calcium,Total 9.8 mg/dL (8.5-10.1); Chloride 104 mmol/L (98-107); Creatinine, Serum 3.63 mg/dL (0.55-1.02); EST Glomerular Filtration Rate 13 mL/min (>60); Est Glom Filt Rate - Afr Amer 16 mL/min (>60); Estimated Creatinine Clearance 12.64 ml/min; Glucose 152 mg/dL (74-106); Potassium 4.5 mmol/L (3.5-5.1); Sodium Level 134 mmol/L (136-145)
[2024-05-24 07:19] LABS: Vancomycin, Random Level 27.3 ug/mL (0.0-15.0)
[2024-05-24 07:36] LABS: Lymphocyte 9 % (19-41); Monocyte 9 % (0-10); Neutrophil-Band 1 % (0-5); Neutrophil-Segmented 81 % (47-70); Nucleated Red Bld Cells,Manual 2 % (0-5); Total Cells Counted 100 (MANUAL DIFF)
[2024-05-24 07:37] LABS: Platelet Estimate ADEQUATE (ADEQ); Red Cell Morphology NORM C+C NORMAL (NORM C&C)
[2024-05-24 07:38] LABS: Absolute Lymphocyte Count 1.51 X10^3/uL (0.83-4.51); Absolute Neutrophil Count 13.8 X10^3/uL (2.0-7.7)
--- NOTE | 2024-05-24 07:48 | PCM.RX.CS ---
Consult Antibiotic Management Pharmacy has been consulted to manage selected antibiotic: Vancomycin Type of Intervention Type of Consult: Follow-up Suspected Infection Suspected Infection: Sepsis and Skin/Soft tissue Prior Doses of Antibiotics Prior Doses of Antibiotics Received/Current Regimen: Vancomycin 750 mg Q12H last dose given 05/22 @ 1359 Labs Labs: Sodium 134 mmol/L (136-145) L 05/24/24 06:18 Potassium 4.5 mmol/L (3.5-5.1) 05/24/24 06:18 Chloride 104 mmol/L (98-107) 05/24/24 06:18 Carbon Dioxide 23.0 mmol/L (21.0-32.0) 05/24/24 06:18 Anion Gap 8 (5-15) 05/24/24 06:18 BUN 63 mg/dL (7-18) H 05/24/24 06:18 Creatinine 3.63 mg/dL (0.55-1.02) H 05/24/24 06:18 Est GFR (MDRD) Af Amer 16 mL/min (>60) L 05/24/24 06:18 Est GFR (MDRD) Non-Af 13 mL/min (>60) L 05/24/24 06:18 BUN/Creatinine Ratio 17.4 RATIO (10-20) 05/24/24 06:18 Glucose 152 mg/dL (74-106) H 05/24/24 06:18 Vancomycin Trough 29.8 ug/mL (5.0-15.0) H 05/23/24 01:30 Random Vancomycin 27.3 ug/mL (0.0-15.0) H 05/24/24 06:18 Microbiology Microbiology: Microbiology 05/23/24 11:45 Urine, Random Legionella Antigen - Final 05/23/24 11:45 Urine, Random Streptococcus pneumoniae Antigen (M - Final 05/21/24 09:32 Urine, Random Urine Culture - Final Culture exhibits no growth. 05/21/24 09:15 Blood Culture (Wb) - Anticubital Left Blood Culture - Preliminary No growth in 48 hours. Dosing Weight Weight used for dosin kg Estimated Creatinine Clearance Estimated Creatinine Clearance: ~12 Goal Trough Goal Trough: 15-20 mcg/mL Pharmacy Plan for Drug Dosing Pharmacy Plan for Drug Dosing: Vancomycin random this AM = 27.3, 40 hours since last dose, only down 2.5 points since random ~ 28 hours ago. Random level in 48 hours. Pharmacy Service will continue to monitor and adjust dosing as required. Follow-Up Labs Follow-Up Labs: Trough: Vancomycin Date/Time Labs Ordered Labs to be done on [date and time ordered]: 05/26/24 @ 0600
[2024-05-24] MEDS: 0.9% Normal Saline (1000mL) 1,000 ML 125 ML IV (08:23)
--- NOTE | 2024-05-24 08:23 | ECHOCS_ITS ---
Reason For Study: ARRHYTHMIA Procedure This was a 2D Doppler, Color Flow transthoracic echocardiogram. The study was technically difficult. Contrast injection was performed. Patient was scanned in supine position during reflux assessment. Exam performed portable in patient room. Left Ventricle Normal LV size. The estimated ejection fraction is 55 %. There is evidence of diastolic dysfunction. No regional wall motion abnormalities noted. Right Ventricle Normal RV size. Normal systolic function. Atria There is mild biatrial dilatation. No doppler evidence for ASD. Mitral Valve There is no mitral valve stenosis. Mild (1+) mitral valve insufficiency. Tricuspid Valve There is no tricuspid stenosis. Mild tricuspid valve insufficiency. Pulmonary artery systolic pressure is 30 mmHg. Aortic Valve Trisinus/trileaflet aortic valve. There is no aortic stenosis. Mild (1+) aortic valve insufficiency. Pulmonic Valve There is no pulmonic valvular stenosis. Mild (1+) pulmonic valve insufficiency. Great Vessels Normal aortic root. Pericardium/Pleural No pericardial effusion. Medication Diluted definity 3.5ml given slow IV push to enhance endocardial definition. MMode/2D Measurements & Calculations LVIDd: 4.0 cm IVSd: 1.4 cm LVOT diam: 2.0 cm LVIDs: 2.7 cm LVPWd: 1.4 cm RVDd: 3.6 cm FS: 33.1 % LVOT area: 3.0 cm2 asc Aorta Diam: 3.8 cm LAV(MOD-bp): 79.0 ml LVAd ap4: 26.9 cm2 LAV(MOD-bp) Indexed: 42.9 ml/m2 LVLd ap4: 7.8 cm LAV(MOD-sp2): 82.4 ml EDV(MOD-sp4): 75.0 ml LAV(MOD-sp4): 75.2 ml EDV(sp4-el): 78.7 ml LVAs ap4: 14.3 cm2 LVLs ap4: 6.7 cm ESV(MOD-sp4): 25.6 ml ESV(sp4-el): 25.6 ml EF(MOD-sp4): 65.9 % EF(sp4-el): 67.5 % LVAd ap2: 24.1 cm2 SV(MOD-sp4): 49.4 ml SV(MOD-sp2): 36.1 ml LVLd ap2: 8.0 cm EDV(MOD-sp2): 58.9 ml EDV(sp2-el): 61.4 ml LVAs ap2: 13.2 cm2 LVLs ap2: 6.3 cm ESV(MOD-sp2): 22.8 ml ESV(sp2-el): 23.4 ml EF(MOD-sp2): 61.4 % SV(sp4-el): 53.1 ml Ao sinus diam: 3.[address] Junction: 3.1 cm LA dimension(2D): 4.4 cm LA A4 area: 23.5 cm2 RA A4 area: 17.7 cm2 TAPSE: 0.77 cm Time Measurements MV dec time: 0.14 sec Doppler Measurements & Calculations MV E max ivan: 91.1 cm/sec Lat Peak E' Ivan: 8.3 cm/sec Med Peak E' Ivan: 5.2 cm/sec E/E' lat: 11.0 E/E' med: 17.4 Ao V2 max: 126.5 cm/sec LV V1 max: 100.4 cm/sec SV(LVOT): 52.0 ml Ao max P.4 mmHg LV V1 max P.1 mmHg Ao V2 mean: 95.7 cm/sec LV V1 mean P.9 mmHg Ao mean P.9 mmHg LV V1 mean: 63.2 cm/sec Ao V2 VTI: 21.4 cm LV V1 VTI: 17.4 cm AV (velocity ratio): 0.81 ISAIAS(I,D): 2.4 cm2 ISAIAS(V,D): 2.4 cm2 PA V2 max: 54.0 cm/sec TR max ivan: 253.1 cm/sec PA max PG (full): 0.45 mmHg TR max P.6 mmHg ECHO/Echo Complete W/ Contrast Interpretation Summary The estimated ejection fraction is 55 %. There is evidence of diastolic dysfunction. Mild (1+) mitral valve insufficiency. Mild (1+) aortic valve insufficiency. Ordering Physician: Odalys Mccain Performed By: Marlys Cheng RDCS
--- NOTE | 2024-05-24 08:39 | EKG12_ITS ---
Test Reason : Blood Pressure : / mmHG Vent. Rate : 073 BPM Atrial Rate : 000 BPM P-R Int : 000 ms QRS Dur : 094 ms QT Int : 392 ms P-R-T Axes : 000 -03 -38 degrees QTc Int : 431 ms Atrial fibrillation Cannot rule out Inferior infarct (cited on or before 21-MAY-2024) Cannot rule out Anterior infarct (cited on or before 21-MAY-2024) Abnormal ECG Confirmed by Jhonatan Lovell ([id number]), loan expeditor HERMINIA ANDERSON ([id number]) on 05/27/2024 12:10:08 PM Referred By: ANTWON Confirmed By:Jhonatan Lovell
--- NOTE | 2024-05-24 08:41 | CT_ITS ---
HISTORY: leucocytosis. TECHNIQUE: Helically acquired images were obtained of the chest, abdomen, and pelvis without contrast. 2-D reformatted images provided. A radiation dose optimization technique was used for this scan. 1212 images. COMPARISON: XR 05/21/2024, US 05/23/2024. FINDINGS: ----Chest: LARGE AIRWAYS: Patent. LUNGS: Mild consolidation with air bronchograms in the right lower lobe. Mild dependent left lower lobe atelectasis. PLEURA: Mild right pleural effusion. HEART AND PERICARDIUM: Moderate cardiomegaly with coronary artery disease. No significant pericardial effusion. VESSELS: No thoracic aortic aneurysm or dissection flap. Right PICC tip in the superior cavoatrial junction. MEDIASTINUM AND ISRAEL: No pathologically enlarged lymph nodes. CHEST WALL: Degenerative changes of the osseous structures. Mild subcutaneous edema. ----Abdomen/Pelvis: BOWEL: Moderate hiatal hernia. Bowel nondilated. No periappendiceal inflammation. Colonic diverticulosis without pericolonic inflammation PERITONEUM: Mild ascites with generalized intra-abdominal edema LIVER: Unremarkable. GALLBLADDER/BILIARY TREE: Multiple gallstones. SPLEEN/PANCREAS/ADRENAL GLANDS: Nonenlarged. KIDNEYS: No nephrolithiasis or obstructing ureteral calculus. VESSELS: No abdominal aortic aneurysm. Moderate atherosclerosis. PELVIC ORGANS: Small calcified uterine leiomyoma. Holden catheter decompression of the bladder. Presacral edema. ABDOMINAL WALL: Moderate subcutaneous edema. Tiny fat-containing of local hernia. BONES: Degenerative change. Anterolisthesis of L3-4 and L4-5. CT/CT Chest, Abd, Pelvis WO Cont IMPRESSION: Mild right pleural effusion with right lower lobe opacity, concerning for pneumonia. Anasarca with mild ascites and generalized intra-abdominal edema. Moderate hiatal hernia. Colonic diverticulosis without acute diverticulitis. Cholelithiasis. Leiomyomatous uterus. Electronically Signed: Chrissy Rodgers MD at 14:28 EDT ,
[2024-05-24 08:59] LABS: Magnesium 1.9 mg/dL (1.6-2.6)
[2024-05-24] MEDS: Ampicillin/Sulbactam 3 GM in 0.9% Normal Saline (100mL MB+) 100 ML IV (09:22)
[2024-05-24] MEDS: APIXABAN 5 MG TABLET PO ×2 (09:24→20:15)
[2024-05-24] MEDS: Metoprolol Tartrate 50 MG Tablet PO ×2 (09:24→20:15)
[2024-05-24] MEDS: dilTIAZem CD 120 MG Capsule PO (09:24)
--- NOTE | 2024-05-24 09:44 | PCM.CONS.C ---
Assessment & Plan Assessment/Plan (1) Ventricular tachycardia (paroxysmal): PLAN: Patient had a 26 beat run of VT on 1017. Electrolytes this morning potassium magnesium and calcium were all within normal limits however yesterday morning potassium was measured at 3.1. The patient is also had significant electrolyte shifts during her hospitalization and worsening acute renal failure. Currently creatinine clearance is down to 13 with a BUN of 63 and creatinine of 3.6. 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 A 2D echocardiogram is pending at this time to evaluate her LV function. Currently I would recommend maintaining her electrolytes and balance. Continuing with the metoprolol 50 mg twice daily. And addressing her metabolic derangements. Further recommendations to be forthcoming once the echocardiogram is available. (2) A-fib: QUALIFIERS: Atrial fibrillation type: unspecified Qualified Code(s): I48.91 - Unspecified atrial fibrillation PLAN: The patient was diagnosed with atrial fibrillation within the last 2 to 3 weeks when she was at [facility]. This is per the daughter. She feels that they treated her with medications did not shock her and discharged her within 48 hours. She has been on Eliquis diltiazem and metoprolol which suggest they were probably trying to rate control her. The patient then developed cellulitis of her right lower extremity prompting admission to [facility] on 05/21/2024. Try to obtain the echocardiogram from [facility] if possible in their records. A 2D echocardiogram is pending results of which will help determine further recommendations for management of her atrial fibrillation. It appears the patient was asymptomatic and there is no definitive timing of when she went into atrial fibrillation. Prior to the [facility] visit she had not seen a physician in 50 years according to the daughter. (3) Cellulitis of leg, right: PLAN: The patient's white count has increased despite aggressive IV antibiotic therapy. She is being evaluated for other potential etiologies of infection by the primary service. (4) Acute renal failure (ARF): QUALIFIERS: Acute renal failure type: unspecified Qualified Code(s): N17.9 - Acute kidney failure, unspecified PLAN: The patient has developed acute renal failure with a creatinine going up to 3.6 BUN of 63 given a GFR of 13. Renal service has been consulted for their input and assessment. PLAN: Plan 1. Continue rate control and oral anticoagulation with Eliquis. Given the patient's acute renal failure I would recommend that we drop the Eliquis to 2.5 mg twice daily because of her 78 years of age. 2. Further recommendations for further investigation and/or therapy for the ventricular tachycardia pending the outcome of the 2D echocardiogram to be done today. 3. Will try to obtain records from [facility] of the discharge summary and echocardiogram. 4. Cardiology will continue to follow. HPI Consult Data Date of Consult: 05/24/24 HPI Narrative Reason for Consultation: Short run of ventricular tachycardia. HPI Narrative: SUSHMA COOPER, is a 78 F who presents with a history of newly diagnosed atrial fibrillation when she was seen at [facility] for 48 hours. The daughter reports to me that she was anticoagulated and diuresed. She apparently was rate controlled with metoprolol and diltiazem as well. She said that she thought the echo showed a thickened heart but otherwise there was no mention of any abnormality to her. The patient has never had a myocardial infarction but she has not seen a doctor in 50 years until this admission at [facility]. The patient is now admitted at [facility] due to her [employer] insurance and this admission was prompted by a sudden swollen erythematous right lower extremity consistent with cellulitis that came up overnight. The patient was admitted May 21 she has been on IV antibiotics. The patient has been in atrial fibrillation since admission. Her initial EKG showed atrial fibrillation with a rapid ventricular sponsor in the 135 bpm range. There was some ST elevation in the face of an old inferior wall infarct that resolved on the new EKG with a rate controlled at 73 bpm. The patient has no prior history of an inferior wall infarct. The daughter tells me the patient always gets confused when she is away from her home she is obviously confused today and the history that I obtained was from the chart and the daughter. Currently the patient is resting flat in the bed she does appear to be slightly tachypneic. She denies shortness of breath. The daughter reports that her confusion she consistently tells me that she is happy is consistent with what she is experienced in the past when she was at [facility]. Since admission the patient's renal function has deteriorated her last creatinine clearance this morning was 13. She has a creatinine of 3.6 a BUN of 63. Her calcium was 9.8 magnesium 1.9 her calcium was 11.9 on admission 1015. Total protein was down to 4.7 albumin 1.9. [facility] Home Medications ?Medication ?Instructions ?Recorded ?Last Taken ?Type apixaban 5 mg tablet (Eliquis) 5 mg PO BID blood thinner 05/21/24 Unknown History diltiazem HCl 120 mg 120 mg PO DAILY blood pressure 05/21/24 Unknown History capsule,extended release 24 hr metoprolol tartrate 50 mg tablet 50 mg PO BID blood pressure 05/21/24 Unknown History torsemide 20 mg tablet 20 mg PO DAILY edema 05/21/24 Unknown History Allergy/AdvReac Type Severity Reaction Status Date / Time No Known Allergies Allergy Verified 05/21/24 12:42 Social History Smoking Status: Former smoker ROS Review of Systems ROS Unobtainable: due to mental status and other Details: Review of systems obtained was from the daughter. Constitutional Constitutional: Reports as per HPI Eyes Eyes: Reports systems reviewed and no addt'l complaints, except as documented ENT HEENT: Reports systems reviewed and no addt'l complaints, except as documented Cardiovascular Cardiovascular: Reports as per HPI Respiratory/Chest Respiratory/Chest: Reports as per HPI Gastrointestinal Gastrointestinal: Reports systems reviewed and no addt'l complaints, except as documented Genitourinary Genitourinary: Reports as per HPI Musculoskeletal Musculoskeletal: Reports as per HPI Integumentary Integumentary: Reports as per HPI Neurologic Neurologic: Reports as per HPI Psychiatric Psychiatric: Reports as per HPI Endocrine Endocrinology: Reports systems reviewed and no addt'l complaints, except as documented Hematologic/Lymphatic Hematologic/Lymphatic: Reports systems reviewed and no addt'l complaints, except as documented Physical Exam Narrative Patient resting in the bed but appears slightly tachypneic with some mild conversational dyspnea. She is confused. Const alert Constitutional Narrative: Oriented to person only. HEENT normocephalic Eyes EOMs intact bilaterally Neck Neck Narrative: Thick neck with no obvious JVD. Carotids: Negative for bruit Chest inspection of chest normal Resp Resp Narrative: Respiratory rate 20-22. Auscultation: diminished lung sounds diffuse Cardio Rate: regular rate Rhythm: abnormal rhythm irregularly irregular Heart Sounds: S1 normal, S2 normal and murmur systolic (Very distant soft systolic murmur that is difficult to quantitate due to body habitus.); Negative for click or gallop Peripheral Pulses: radial pulses present GI soft to palpation GI Narrative: Obese Extremity Extremity Narrative: Both lower extremities are wrapped the right is larger than the left and tense. The left has no obvious edema. General Extremity: edema right lower extremity Neuro Neuro Narrative: Confused but alert. Psych Psych Narrative: Oriented to person only. Risk Stratification Risk Stratification Applicable: No Charges/Coding Visit Charges Inpatient E&M: 30430 Init Hosp L3 Objective Data Vital Signs: Vital Signs Temp Pulse Resp BP Pulse Ox O2 Del Method 97.4 F L 70 18 130/87 H 96 Room Air 05/24/24 09:21 05/24/24 09:24 05/24/24 09:21 05/24/24 09:21 05/24/24 09:21 05/24/24 09:21 Oxygen Delivery Method Room Air Weight: 177 lb 15.984 oz Body Mass Index (BMI) 31.5 Intake & Output: Intake and Output for Last 24 Hours 05/22/24 05/23/24 05/24/24 23:59 23:59 23:59 Intake Total 2945 / 2945 2284 / 2284 1047.92 / 1047.92 Output Total 100 / 100 100 / 100 Balance 2945 / 2945 2184 / 2184 947.92 / 947.92 Lab / Micro Data Attestation: I reviewed the patient's lab results. 05/24/24 06:18 05/24/24 06:18 Labs: Laboratory Results - last 24 hr 05/22/24 06:11: Diff Path Review Reviewed, Hep Bs Antigen Cancelled, Hep Bs Antibody Cancelled, Hepatitis C Antibody Cancelled 05/23/24 06:01: Total Bilirubin 1.00, Direct Bilirubin 0.48 H, AST 22, ALT 30, Alkaline Phosphatase 97, Total Protein 4.7 L, Albumin 1.9 L, Globulin 2.8 05/23/24 11:45: Urine Creatinine 99.70, Urine Urea Nitrogen 688 05/24/24 06:18: WBC 16.8 H, RBC 3.78 L, Hgb 10.4 L, Hct 33.0 L, MCV 87.3, MCH 27.5, MCHC 31.5 L, RDW Std Deviation 49.1 H, RDW Coeff of Erica 15.4 H, Plt Count 489 H, MPV 9.2, Neut % (Auto) Not Reportable, Absolute Neuts (auto) 13.8 H, Absolute Lymphs (auto) 1.51, Total Counted 100, Neutrophils % (Manual) 81 H, Band Neutrophils % 1, Lymphocytes % (Manual) 9 L, Monocytes % (Manual) 9, Nucleated RBCs/100 WBC 2, Diff Path Review December, Platelet Estimate ADEQUATE, RBC Morphology NORM C+C, Sodium 134 L, Potassium 4.5, Chloride 104, Carbon Dioxide 23.0, Anion Gap 8, BUN 63 H, Creatinine 3.63 H, Estim Creat Clear Calc 12.64, Est GFR (MDRD) Af Amer 16 L, Est GFR (MDRD) Non-Af 13 L, BUN/Creatinine Ratio 17.4, Glucose 152 H, Calcium 9.8, Magnesium 1.9, Random Vancomycin 27.3 H Micro: Microbiology 05/23/24 11:45 Urine, Random Legionella Antigen - Final 05/23/24 11:45 Urine, Random Streptococcus pneumoniae Antigen (M - Final 05/21/24 09:32 Urine, Random Urine Culture - Final Culture exhibits no growth. 05/21/24 09:15 Blood Culture (Wb) - Anticubital Left Blood Culture - Preliminary No growth in 48 hours. Rhythm Strip Rhythm Strip: A-fib Rate: 72 Ectopy: - (Short run of VT noted 05/23/2024.) Cardiology Labs/Tests 05/23/24 06:01: Total Bilirubin 1.00, Direct Bilirubin 0.48 H 05/24/24 06:18: WBC 16.8 H, RBC 3.78 L, Hgb 10.4 L, Hct 33.0 L, MCV 87.3, MCH 27.5, MCHC 31.5 L, Plt Count 489 H, MPV 9.2, Neut % (Auto) Not Reportable, Absolute Neuts (auto) 13.8 H, Total Counted 100, Neutrophils % (Manual) 81 H, Band Neutrophils % 1, Lymphocytes % (Manual) 9 L, Monocytes % (Manual) 9, Sodium 134 L, Potassium 4.5, Chloride 104, Carbon Dioxide 23.0, Anion Gap 8, BUN 63 H, Creatinine 3.63 H, Est GFR (MDRD) Af Amer 16 L, Est GFR (MDRD) Non-Af 13 L, BUN/Creatinine Ratio 17.4, Glucose 152 H, Calcium 9.8, Magnesium 1.9 Rhythm: EKG: ECHO: Stress Test: Cardiac Cath: PCI: CT Surgery: Holter monitor: EPS: PPM: CXR: Chest CT Scan: Radiography Diagnostic Testing: Radiology Impression Liver Ultrasound 05/21/24 13:22 IMPRESSION: Cholelithiasis. Electronically Signed: Antonio Funez MD at 13:01 EDT , Renal Ultrasound 05/23/24 08:25 IMPRESSION: No hydronephrosis. 1.1 x 1.0 cm left renal cyst. Electronically Signed: Sumi Tsai MD at 13:58 EDT ,
--- NOTE | 2024-05-24 10:12 | CON.PCM.RE_ITS ---
Assessment & Plan Assessment/Plan (1) LOKI (acute kidney injury): PLAN: Plan Impression/Plan: The patient is a 78-year-old female with history of new onset atrial fibrillation. She presents to hospital on 05/21/2024 with 1 day history of R lower extremity erythema and swelling. Patient is admitted for treatment of RLE cellulitis. Nephrology is asked to see the patient because of LOKI. Acute kidney injury. The patient has no prior history of CKD. She presented with SCr of 0.88 mg/dL. SCr has increased to 3.63 mg/dL today. There is no obstruction seen on renal US. UA does not show hematuria, so I am less suspicious for acute GN related to cellulitis. However, she has proteinuria, so I will check complement levels to be complete. My suspicion is that the patient has developed ischemic ATN from wide fluctuation of EBV. Another possibility would be nephrotoxic ATN from vancomycin. However, she has only received one dose of vancomycin as far as I can tell, and SCr was already increasing by the second hospital day. I agree with stopping Lasix since the patient does not appear to be volume overload. Patient had poor appetite earlier today and is not eating dinner tonight. Therefore, I will give her limited fluid bolus tonight. Keep MAP>65 mmHg. Encouraged patient to push oral intake on her own. There is no current need for KRT (dialysis). Will recheck renal function, volume status, acid-base, and electrolytes tomorrow. HPI Consult Data Date of Consult: 05/24/24 HPI Narrative Reason for Consultation: LOKI HPI Narrative: The patient is a 78-year-old female with past history of recently diagnosed atrial fibrillation. She presents to hospital on 05/21/2024 with 1 day history of R lower extremity erythema and swelling. Patient is admitted for treatment of RLE cellulitis. Nephrology is asked to see the patient because of LOKI. The patient presented to hospital on 05/21/2024 with SCr of 0.88 mg/dL. SCr has increased to 3.63 mg/dL in the past 3 days. The patient has not been persistently hypotensive. She is being treated with Unasyn for cellulitis. She also received 1 dose IV vancomycin as well. During this admission, the patient has also developed ventricular dysrhythmia which is being evaluated by cardiology. The patient denies chest pain, dyspnea, nausea or vomiting. There is no diarrhea. She has been intermittently confused per my discussion with her daughter, Macey, who is bedside. Renal US from 05/23/2024 was negative for hydronephrosis. The patient denies CP, dyspnea, nausea, or diarrhea. There is no orthopnea, PND or significant edema of L lower extremity. Prior to admission to [facility] last week, the patient was not on any medications. Her last hospital visit prior to last week was around 3 years ago. [facility] Home Medications ?Medication ?Instructions ?Recorded ?Last Taken ?Type apixaban 5 mg tablet (Eliquis) 5 mg PO BID blood thinner 05/21/24 Unknown History diltiazem HCl 120 mg 120 mg PO DAILY blood pressure 05/21/24 Unknown History capsule,extended release 24 hr metoprolol tartrate 50 mg tablet 50 mg PO BID blood pressure 05/21/24 Unknown History torsemide 20 mg tablet 20 mg PO DAILY edema 05/21/24 Unknown History Allergy/AdvReac Type Severity Reaction Status Date / Time No Known Allergies Allergy Verified 05/21/24 12:42 Social History Smoking Status: Former smoker ROS ROS Narrative As per HPI, otherwise non-contributory. Physical Exam Narrative General: Alert and oriented x2, NAD. HEENT: Normocephalic, atraumatic. Mucous membrane moist without erythema. PERRLA, EOMI. Hearing is intact. Neck: Supple, no JVD. Trachea is midline. No thyromegaly or lymphadenopathy. Cardiovascular: Normal S1, S2. No rubs, murmurs, or gallops. Respiratory: Lungs are clear to auscultation bilaterally. No wheezing, rhonchi, or rales. Abdomen: Normal bowel sounds, soft, nontender, no guarding or rebound, no organomegaly. Extremities: Lower extremities are wrapped in Bridger bandage bilaterally. No significant swelling of the feet. Musculoskeletal: Full passive range of motion, no joint swelling. Psychiatric: Normal mood and affect. Skin: Warm and dry, no rash. Neurologic: Cranial nerve II to XII are grossly intact. No focal neurologic deficits. Lab / Micro Data 05/24/24 06:18 05/24/24 06:18 Labs: Laboratory Results - last 24 hr 05/22/24 06:11: Hep Bs Antigen Cancelled, Hep Bs Antibody Cancelled, Hepatitis C Antibody Cancelled 05/23/24 06:01: Total Bilirubin 1.00, Direct Bilirubin 0.48 H, AST 22, ALT 30, Alkaline Phosphatase 97, Total Protein 4.7 L, Albumin 1.9 L, Globulin 2.8 05/23/24 11:45: Urine Creatinine 99.70, Urine Urea Nitrogen 688 05/24/24 06:18: WBC 16.8 H, RBC 3.78 L, Hgb 10.4 L, Hct 33.0 L, MCV 87.3, MCH 27.5, MCHC 31.5 L, RDW Std Deviation 49.1 H, RDW Coeff of Erica 15.4 H, Plt Count 489 H, MPV 9.2, Neut % (Auto) Not Reportable, Absolute Neuts (auto) 13.8 H, Absolute Lymphs (auto) 1.51, Total Counted 100, Neutrophils % (Manual) 81 H, Band Neutrophils % 1, Lymphocytes % (Manual) 9 L, Monocytes % (Manual) 9, Nucleated RBCs/100 WBC 2, Diff Path Review December, Platelet Estimate ADEQUATE, RBC Morphology NORM C+C, Sodium 134 L, Potassium 4.5, Chloride 104, Carbon Dioxide 23.0, Anion Gap 8, BUN 63 H, Creatinine 3.63 H, Estim Creat Clear Calc 12.64, Est GFR (MDRD) Af Amer 16 L, Est GFR (MDRD) Non-Af 13 L, BUN/Creatinine Ratio 17.4, Glucose 152 H, Calcium 9.8, Magnesium 1.9, Random Vancomycin 27.3 H Micro: Microbiology 05/23/24 11:45 Urine, Random Legionella Antigen - Final 05/23/24 11:45 Urine, Random Streptococcus pneumoniae Antigen (M - Final 05/21/24 09:32 Urine, Random Urine Culture - Final Culture exhibits no growth. 05/21/24 09:15 Blood Culture (Wb) - Anticubital Left Blood Culture - Preliminary No growth in 48 hours. Rhythm Strip Rhythm Strip: A-fib Rate: 72 Ectopy: - (Short run of VT noted 05/23/2024.) Imaging Radiology Impression Liver Ultrasound 05/21/24 13:22 IMPRESSION: Cholelithiasis. Electronically Signed: Antonio Funez MD at 13:01 EDT , Renal Ultrasound 05/23/24 08:25 IMPRESSION: No hydronephrosis. 1.1 x 1.0 cm left renal cyst. Electronically Signed: Sumi Tsai MD at 13:58 EDT ,
--- NOTE | 2024-05-24 10:22 | WOUNDNOTE ---
The redness continues to improve to the right lower leg. still some serous drainage noted. no open areas visualized. will continue with dressing change to the right lower leg with compression to bilateral lower legs.
[2024-05-24 10:24] LABS: BNP,B-Type NATRIURETIC PEPTIDE 2138.8 pg/mL (0-100)
--- NOTE | 2024-05-24 10:29 | CASEMGMT ---
Discharge Planning A list of?HH providers including quality and resource use data and consistent with the patient's preferred geographic region, medical needs, and insurance network was created in [employer] Guide.? This list was provided to the RN SW. Blanka Guillermo, Discharge Planning Asst.
--- NOTE | 2024-05-24 11:15 | CASEMGMT ---
WILL LOGAN in to discuss needs at discharge, patient drowsy and unable to participate. WILL LOGAN called daughter, Macey, to discuss HHC at discharge. Daughter states she will be in this evening. WILL LOGAN informed daughter that list of HHC agencies to be left in patients room for her to review and indicate preferences, daughter voiced understanding. Daughter denied further questions or concerns. CM will continue to follow this patient and plan for a safe discharge.
[2024-05-24 11:43] LABS: Bacteria 0 SEEN /hpf (None Seen); Mucous, Urine 0 SEEN /hpf (<or=2+); Squamous Epithelial Cells - UA 0 SEEN /hpf (5-10); White Blood Cells 0 SEEN /hpf (0-5)
[2024-05-24 12:03] LABS: Protein, Urine (Random) 122.2 mg/dL (<11.9); Urine Sodium 75 mmol/L (Not Establ.)
[2024-05-24 12:07] LABS: Color, Urine Yellow (Yellow); Glucose, Dipstick Normal (Normal); Ketone-Dipstick Negative (Negative); Leukocyte Esterase-Dipstick Negative /ul (Negative); Nitrite-Dipstick Negative (Negative); Occult Blood-Urine 25 /ul (Negative); Protein-Dipstick 100 mg/dl (Negative); Urine Bilirubin Dipstick Negative (Negative); Urine Clarity Clear (Clear); Urine Urobilinogen Normal (Normal); Urine pH 6.5 (5.0 - 8.0)
[2024-05-24 12:15] LABS: Red Blood Cells-Urine 0-5 SEEN /hpf (0-5)
--- NOTE | 2024-05-24 12:31 | PN_ITS ---
Subjective Subjective Patient seen and examined. She had no active complaitns today and said she felt great. However, she had a 22 beat run of vtach just before I saw her. She also had some shortness of breath when getting up from a lying position to a sitting position. She denied any chest pain, palpitations, dizziness, nausea, vomiting or any other symptoms. Review of systems is otherwise negative. Objective Data Objective Data Vital Signs: Vital Signs Temp Pulse Resp BP Pulse Ox O2 Del Method 97.4 F L 70 18 130/87 H 96 Room Air 05/24/24 09:21 05/24/24 09:24 05/24/24 09:21 05/24/24 09:21 05/24/24 09:21 05/24/24 09:21 Oxygen Delivery Method Room Air Weight: 177 lb 15.984 oz Body Mass Index (BMI) 31.5 Intake & Output: Intake and Output for Last 24 Hours 05/22/24 05/23/24 05/24/24 23:59 23:59 23:59 Intake Total 2945 / 2945 2284 / 2284 1207.84 / 1207.84 Output Total 100 / 100 450 / 450 Balance 2945 / 2945 2184 / 2184 757.84 / 757.84 Lab / Micro Data 05/24/24 06:18 05/24/24 06:18 Labs: Laboratory Results - last 24 hr 05/23/24 11:45: Urine Creatinine 99.70, Urine Urea Nitrogen 688 05/24/24 06:18: WBC 16.8 H, RBC 3.78 L, Hgb 10.4 L, Hct 33.0 L, MCV 87.3, MCH 27.5, MCHC 31.5 L, RDW Std Deviation 49.1 H, RDW Coeff of Erica 15.4 H, Plt Count 489 H, MPV 9.2, Neut % (Auto) Not Reportable, Absolute Neuts (auto) 13.8 H, Absolute Lymphs (auto) 1.51, Total Counted 100, Neutrophils % (Manual) 81 H, Band Neutrophils % 1, Lymphocytes % (Manual) 9 L, Monocytes % (Manual) 9, Nucleated RBCs/100 WBC 2, Diff Path Review December, Platelet Estimate ADEQUATE, RBC Morphology NORM C+C, Sodium 134 L, Potassium 4.5, Chloride 104, Carbon Dioxide 23.0, Anion Gap 8, BUN 63 H, Creatinine 3.63 H, Estim Creat Clear Calc 12.64, Est GFR (MDRD) Af Amer 16 L, Est GFR (MDRD) Non-Af 13 L, BUN/Creatinine Ratio 17.4, Glucose 152 H, Calcium 9.8, Magnesium 1.9, B-Natriuretic Peptide 2138.8 H, Random Vancomycin 27.3 H 05/24/24 11:35: Urine Color Yellow, Urine Clarity Clear, Urine pH 6.5, Ur Specific [place] 1.010, Urine Protein 100 H, Urine Glucose (UA) Normal, Urine Ketones Negative, Urine Occult Blood 25 H, Urine Nitrite Negative, Urine Bilirubin Negative, Urine Urobilinogen Normal, Ur Leukocyte Esterase Negative, Urine RBC 0-5 SEEN, Urine WBC 0 SEEN, Ur Squamous Epith Cells 0 SEEN, Urine Bacteria 0 SEEN, Urine Mucus 0 SEEN, U Random Total Protein 122.2 H, Ur Random Sodium 75, Urine Creatinine 44.20 Micro: Microbiology 05/23/24 11:45 Urine, Random Legionella Antigen - Final 05/23/24 11:45 Urine, Random Streptococcus pneumoniae Antigen (M - Final 05/21/24 09:32 Urine, Random Urine Culture - Final Culture exhibits no growth. 05/21/24 09:15 Blood Culture (Wb) - Anticubital Left Blood Culture - Preliminary No growth in 48 hours. Radiography Diagnostic Testing: Radiology Impression Liver Ultrasound 05/21/24 13:22 IMPRESSION: Cholelithiasis. Electronically Signed: Antonio Funez MD at 13:01 EDT , Renal Ultrasound 05/23/24 08:25 IMPRESSION: No hydronephrosis. 1.1 x 1.0 cm left renal cyst. Electronically Signed: Sumi Tsai MD at 13:58 EDT , Rhythm Strip Rhythm Strip: A-fib Rate: 72 Ectopy: - (Short run of VT noted 05/23/2024.) Physical Exam Const alert, oriented x3 and no apparent distress General Appearance: cooperative HEENT normocephalic, head/scalp atraumatic, hearing grossly normal bilaterally, moist oral mucous membranes and oropharynx normal Eyes PERRL, EOMs intact bilaterally and conjunctivae normal Neck no lymphadenopathy and supple Lymph Lymphatic: no lymphadenopathy noted Resp normal respiratory effort, normal air movement, no retractions, no use of accessory muscles and clear to auscultation bilaterally Cardio regular rate, regular rhythm, S1 normal heart sound, S2 normal heart sound and no murmurs GI normal to inspection, nondistended, normoactive bowel sounds, soft to palpation, non-tender and non-distended Extremity Extremity Narrative: both LEs wrapped in bandage Skin Skin Narrative: as under extremities Neuro oriented x3, CN's II-XII intact bilaterally and moves all extremities Sensorium / Orientation: awake and alert Motor Exam: strength 5/5 throughout Psych affect normal Appearance: appropriate Assessment & Plan Assessment/Plan (1) Sepsis: QUALIFIERS: Sepsis acute organ dysfunction status: without acute organ dysfunction (2) Cellulitis of leg, right: PLAN: Plan #Sepsis due to cellulitis of the RLE * WBC today has trended up to 16.8. * Swelling has improved slightly. vancomycin discontinued due to LOKI. * Apply Bridger wraps to lower extremity * Duplex of lower extremities showed no evidence of DVT * now switched to IV unasyn * since wbc is trending upwards, CT chest/abdomen/pelvis ordered without contrast * #LOKI * Cr has trended up further from 2.3 to 3.36. * FeUrea showed intrinsic kidney disease * Renal USG showed no hydronephrosis or 1.1 x 1cm left renal cyst * nephrology consulted due to worsening kidney function. * * #Cellulitis of the RLE: as above #Non sustained ventricular tachycardia * EKG done on admission showed some ST elevations in the inferior leads it was read as critical alert ST elevated IA. ED doctor did discuss with the electronic field service engineer Dr Ann who reviewed the images and did not think that patient had ST elevation IA of the inferior region. * Patient also denies any chest pain. * she however did have a 22 beat run of ventricular tachycardia today and had some shortness of breath with sitting up. * will get 2D echo. Cardiology also consulted * Mg is 1.9. will daytime caregiver some magnesium replacement ot keep it >2 * BNP is 2138.8, though in light of the worsening kidney function it is understandable it is elevated * unable to give patient any lasix due to impaired kidney function * await 2D echo read and cardiology rec's * #Hypokalemia: resolved. potassium today is 4.5 #Elevated bilirubin * resolved. Liver enzymes have trended down and normalised. * hepatitis panel is still pending. * liver ultrasound done, read is pending. * * #Atrial fibrillation: on metoprolol and cardizem. On eliquis. DVT prophylaxis; already on eliquis Code status: full code * Charges/Coding Visit Charges Inpatient E&M: 97912 Subs Hosp L3
[2024-05-24 14:36] LABS: Pathologist Review Reviewed
[2024-05-24] MEDS: 0.9% Normal Saline (1000mL) 1,000 ML 100 ML IV (18:37)
[2024-05-25] VITALS (16 sets, daily range): BP systolic 79–127; BP diastolic 45–87; PULSE 74–87; RESP 18–35; TEMP 36.1–36.6; O2SAT 92–100
[2024-05-25 05:07] LABS: Complement C3 140 mg/dL (82-167)
[2024-05-25 06:05] LABS: Hematocrit 27.6 % (37-47); Hemoglobin 8.7 g/dL (12.0-15.0); Mean Corp Hgb Conc 31.5 g/dL (32-36); Mean Corpuscular Hgb 27.4 pg (27.0-32.0); Mean Corpuscular Volume 87.1 fL (81-99); Mean Platelet Vol. 9.1 fl (6.2-12.0); POSITIVE COUNT YES; POSITIVE DIFFERENTIAL YES; POSITIVE MORPHOLOGY YES; Platelet Count 522 K/mm3 (150-450); RBC Distribution Width CV 15.3 % (11.6-14.6); RBC Distribution Width SD 48.4 fl (35.1-43.9); Red Blood Count 3.17 M/mm3 (4.2-5.4); White Blood Count 18.6 K/mm3 (4.4-11.0)
[2024-05-25 06:08] LABS: Differential Indicated MANUAL DIFF
[2024-05-25 06:30] LABS: Anion Gap 9 (5-15); BUN 98 mg/dL (7-18); BUN/Creat Ratio 21.6 RATIO (10-20); Calcium,Total 9.6 mg/dL (8.5-10.1); Chloride 108 mmol/L (98-107); Creatinine, Serum 4.53 mg/dL (0.55-1.02); EST Glomerular Filtration Rate 10 mL/min (>60); Est Glom Filt Rate - Afr Amer 12 mL/min (>60); Estimated Creatinine Clearance 10.13 ml/min; Glucose 163 mg/dL (74-106); Potassium 4.6 mmol/L (3.5-5.1); Sodium Level 137 mmol/L (136-145)
[2024-05-25 06:40] LABS: Lymphocyte 14 % (19-41); Metamyelocyte 6 % (0-1); Monocyte 3 % (0-10); Myelocyte 3 % (0-0); Neutrophil-Segmented 74 % (47-70); Nucleated Red Bld Cells,Manual 4 % (0-5); Total Cells Counted 100 (MANUAL DIFF)
[2024-05-25 06:42] LABS: Anisocytosis 1+; Hypochromasia RARE; Platelet Estimate SLT INC (ADEQ); Polychromasia 1+; Target Cells 1+
[2024-05-25 06:43] LABS: CPK Total, Creatine Kinase 14 U/L (26-192); Ovalocyte 1+
[2024-05-25 06:44] LABS: Absolute Neutrophil Count 13.7 X10^3/uL (2.0-7.7)
[2024-05-25] MEDS: APIXABAN 5 MG TABLET PO (10:17)
--- NOTE | 2024-05-25 10:32 | PCM.PN.CARD ---
Subjective Subjective Patient is very confused this morning and breathing 25-30 times per minute. O2 sats are acceptable on room air. Telemetry shows atrial fibrillation with a heart rate in 75 to 80 bpm range with no further ventricular tachycardia. 1 documented 26 beat run of VT early on 05/24/2024. Objective Data Vital Signs: Vital Signs Temp Pulse Resp BP Pulse Ox O2 Del Method 97.1 F L 85 34 H 90/66 95 Room Air 05/25/24 09:30 05/25/24 09:30 05/25/24 09:30 05/25/24 09:30 05/25/24 09:30 05/25/24 09:30 Oxygen Delivery Method Room Air Weight: 177 lb 15.984 oz Body Mass Index (BMI) 31.5 Intake & Output: Intake and Output for Last 24 Hours 05/23/24 05/24/24 05/25/24 23:59 23:59 23:59 Intake Total 2284 / 2284 1207.84 / 1207.84 1000 / 1000 Output Total 100 / 100 450 / 450 Balance 2184 / 2184 757.84 / 757.84 1000 / 1000 Lab / Micro Data Attestation: I reviewed the patient's lab results. 05/25/24 05:48 05/25/24 05:48 Labs: Laboratory Results - last 24 hr 05/24/24 05:25: Complement C3 140 05/24/24 06:18: Diff Path Review Reviewed 05/24/24 11:35: Urine Color Yellow, Urine Clarity Clear, Urine pH 6.5, Ur Specific [place] 1.010, Urine Protein 100 H, Urine Glucose (UA) Normal, Urine Ketones Negative, Urine Occult Blood 25 H, Urine Nitrite Negative, Urine Bilirubin Negative, Urine Urobilinogen Normal, Ur Leukocyte Esterase Negative, Urine RBC 0-5 SEEN, Urine WBC 0 SEEN, Ur Squamous Epith Cells 0 SEEN, Urine Bacteria 0 SEEN, Urine Mucus 0 SEEN, U Random Total Protein 122.2 H, Ur Random Sodium 75, Urine Creatinine 44.20 05/25/24 05:48: WBC 18.6 H, RBC 3.17 L, Hgb 8.7 L, Hct 27.6 L, MCV 87.1, MCH 27.4, MCHC 31.5 L, RDW Std Deviation 48.4 H, RDW Coeff of Erica 15.3 H, Plt Count 522 H, MPV 9.1, Neut % (Auto) Not Reportable, Absolute Neuts (auto) 13.7 H, Absolute Lymphs (auto) 2.60, Total Counted 100, Neutrophils % (Manual) 74 H, Lymphocytes % (Manual) 14 L, Monocytes % (Manual) 3, Metamyelocytes % 6 H, Myelocytes % 3 H, Nucleated RBCs/100 WBC 4, Diff Path Review May , Platelet Estimate SLT INC, Polychromasia 1+, Hypochromasia RARE, Anisocytosis 1+, Target Cells 1+, Ovalocytes 1+, Sodium 137, Potassium 4.6, Chloride 108 H, Carbon Dioxide 20.0 L, Anion Gap 9, BUN 98 H, Creatinine 4.53 H, Estim Creat Clear Calc 10.13, Est GFR (MDRD) Af Amer 12 L, Est GFR (MDRD) Non-Af 10 L, BUN/Creatinine Ratio 21.6 H, Glucose 163 H, Calcium 9.6, Total Creatine Kinase 14 L Rhythm Strip Rhythm Strip: A-fib Rate: 75 Ectopy: None and - (Short run of VT noted 05/23/2024.) Cardiology Labs/Tests 05/24/24 11:35: Urine Color Yellow, Urine Clarity Clear, Urine pH 6.5, Ur Specific [place] 1.010, Urine Protein 100 H, Urine Glucose (UA) Normal, Urine Ketones Negative, Urine Occult Blood 25 H, Urine Nitrite Negative, Urine Bilirubin Negative, Urine Urobilinogen Normal, Ur Leukocyte Esterase Negative, Urine RBC 0-5 SEEN, Urine WBC 0 SEEN 05/25/24 05:48: WBC 18.6 H, RBC 3.17 L, Hgb 8.7 L, Hct 27.6 L, MCV 87.1, MCH 27.4, MCHC 31.5 L, Plt Count 522 H, MPV 9.1, Neut % (Auto) Not Reportable, Absolute Neuts (auto) 13.7 H, Total Counted 100, Neutrophils % (Manual) 74 H, Lymphocytes % (Manual) 14 L, Monocytes % (Manual) 3, Metamyelocytes % 6 H, Myelocytes % 3 H, Sodium 137, Potassium 4.6, Chloride 108 H, Carbon Dioxide 20.0 L, Anion Gap 9, BUN 98 H, Creatinine 4.53 H, Est GFR (MDRD) Af Amer 12 L, Est GFR (MDRD) Non-Af 10 L, BUN/Creatinine Ratio 21.6 H, Glucose 163 H, Calcium 9.6 Rhythm: EKG: ECHO: Stress Test: Cardiac Cath: PCI: CT Surgery: Holter monitor: EPS: PPM: CXR: Chest CT Scan: Radiography Diagnostic Testing: Radiology Impression Echocardiogram 05/24/24 08:23 Interpretation Summary The estimated ejection fraction is 55 %. There is evidence of diastolic dysfunction. Mild (1+) mitral valve insufficiency. Mild (1+) aortic valve insufficiency. Ordering Physician: Odalys Mccain Performed By: Marlys Cheng [facility] Chest/Abdomen/Pelvis CT 05/24/24 08:41 IMPRESSION: Mild right pleural effusion with right lower lobe opacity, concerning for pneumonia. Anasarca with mild ascites and generalized intra-abdominal edema. Moderate hiatal hernia. Colonic diverticulosis without acute diverticulitis. Cholelithiasis. Leiomyomatous uterus. Electronically Signed: Chrissy Rodgers MD at 14:28 EDT Reading Location ID and State: [facility] / [place] Tel , Service support , Physical Exam Narrative Patient is confused but cooperative. Const Constitutional Narrative: Confused HEENT normocephalic Eyes EOMs intact bilaterally Neck supple Neck Narrative: Thick neck unable to discern JVD. Resp Resp Narrative: Patient is tachypneic with a respiratory rate of 25-30. Only scant crackles in the right base. Cardio Cardio Narrative: Distant heart tones due to body habitus. Rate: regular rate Rhythm: abnormal rhythm irregularly irregular Heart Sounds: S1 normal and S2 normal; Negative for click, gallop or murmur GI soft to palpation Extremity no pedal edema Neuro Neuro Narrative: Confused but cooperative and follows commands. Psych Psych Narrative: Confused Assessment & Plan Assessment/Plan (1) A-fib: QUALIFIERS: Atrial fibrillation type: unspecified Qualified Code(s): I48.91 - Unspecified atrial fibrillation PLAN: Patient has a history of atrial fibrillation was originally diagnosed approximately 2 to 3 weeks ago. The patient was totally asymptomatic and had no idea if she was in atrial fibs she was evaluated at [facility]. The patient's heart rate is appropriate at 75-80 given her infection and acute renal insufficiency. Her creatinine continues to go up is 4.5 today. (2) Ventricular tachycardia (paroxysmal): PLAN: The patient had 1 episode of 26 beat run of ventricular tachycardia. She has had no other significant ectopy since that point in time on 05/24/2024. Her echocardiogram done yesterday revealed an EF of 55% with diastolic dysfunction. She had mild atrial enlargement of both atria. There was mild tricuspid regurgitation with a pulmonary artery pressure estimated at 30 which is not consistent with pulmonary hypertension. She has 1+ aortic insufficiency and 1+ mitral regurgitation. There is no evidence of recent myocardial infarction or significant structural heart disease. At this point time I do recommend continued monitoring. Once the patient is stabilized with her renal function and metabolic derangements then further noninvasive evaluation may be indicated. I would consider ruling out ischemia with a pharmacologic stress test at some point in time this could be done in the ambulatory setting or prior to discharge depending on the recovery of her renal function and treatment of her infectious process. (3) LOKI (acute kidney injury): PLAN: Nephrology team is managing. The patient does not appear to be volume overloaded at this point in time. She is tachypneic and a CT scan of her chest suggested a possible right lower lobe pneumonia yesterday. The patient's creatinine has increased from 3.56-4.5 today. (4) Cellulitis of leg, right: PLAN: Treatment of the cellulitis and other infectious process are being cared for by the primary service. PLAN: Plan 1. Will decrease Eliquis to 2.5 mg twice daily given her renal failure and age of 78. 2. Will defer any further cardiovascular evaluations until the patient's infectious issues and renal function are stabilized. 3. Cardiology will follow peripherally. Please call if further assistance is needed. Charges/Coding Visit Charges Inpatient E&M: 10719 Subs Hosp L3
[2024-05-25 10:44] LABS: Allen Test Positive; Base Excess -5 mmol/L (-2 to +2); Bicarbonate 19.2 mmol/L (22-26); Blood Gas Specimen Type ART; Mode Not entered; O2 Delivery Device Not entered; PO2 86 mmHG (75-100); SITE L Radial; SO2 97 % (95-99); Total Carbon Dioxide 20 mmol/L; pCO2 29.5 mmHg (35-45); pH 7.42 (7.35-7.45)
[2024-05-25] MEDS: Meropenem 500 MG in 0.9% Normal Saline (50mL MB+) 50 ML 100 MG IV (12:08)
[2024-05-25] MEDS: Furosemide 500 MG in Empty Viaflex 50 mL 1 EACH CONT INF (12:13)
[2024-05-25] MEDS: Furosemide 100 MG/10 ML Vial IV (12:15)
--- NOTE | 2024-05-25 14:23 | PN_ITS ---
Subjective Subjective Patient seen and examined. She was more tachypneic today with breathing into the 40s. She had had no active complaints. Her daughter was by her bedside. Patient says she had no active issues that would like to be she could go home. Her creatinine however trended up further to 4.63 today. Patient looks much sicker and more lethargic today. Objective Data Objective Data Vital Signs: Vital Signs Temp Pulse Resp BP Pulse Ox O2 Del Method 97.1 F L 76 32 H 112/69 98 Room Air 05/25/24 09:30 05/25/24 13:00 05/25/24 13:00 05/25/24 13:00 05/25/24 13:00 05/25/24 13:00 Oxygen Delivery Method Room Air Weight: 177 lb 15.984 oz Body Mass Index (BMI) 31.5 Intake & Output: Intake and Output for Last 24 Hours 05/23/24 05/24/24 05/25/24 23:59 23:59 23:59 Intake Total 2284 / 2284 1207.84 / 1207.84 1180 / 1180 Output Total 100 / 100 450 / 450 150 / 150 Balance 2184 / 2184 757.84 / 757.84 1030 / 1030 Lab / Micro Data 05/25/24 05:48 05/25/24 05:48 Labs: Laboratory Results - last 24 hr 05/24/24 05:25: Complement C3 140 05/24/24 06:18: Diff Path Review Reviewed 05/25/24 05:48: WBC 18.6 H, RBC 3.17 L, Hgb 8.7 L, Hct 27.6 L, MCV 87.1, MCH 27.4, MCHC 31.5 L, RDW Std Deviation 48.4 H, RDW Coeff of Erica 15.3 H, Plt Count 522 H, MPV 9.1, Neut % (Auto) Not Reportable, Absolute Neuts (auto) 13.7 H, Absolute Lymphs (auto) 2.60, Total Counted 100, Neutrophils % (Manual) 74 H, L ymphocytes % (Manual) 14 L, Monocytes % (Manual) 3, Metamyelocytes % 6 H, M yelocytes % 3 H, Nucleated RBCs/100 WBC 4, Diff Path Review May foll, Platelet Estimate SLT INC, Polychromasia 1+, Hypochromasia RARE, Anisocytosis 1+, Target Cells 1+, Ovalocytes 1+, Sodium 137, Potassium 4.6, Chloride 108 H, Carbon Dioxide 20.0 L, Anion Gap 9, BUN 98 H, Creatinine 4.53 H, Estim Creat Clear Calc 10.13, Est GFR (MDRD) Af Amer 12 L, Est GFR (MDRD) Non-Af 10 L, BUN/Creatinine Ratio 21.6 H, Glucose 163 H, Calcium 9.6, Total Creatine Kinase 14 L Micro: Microbiology 05/23/24 11:45 Urine, Random Legionella Antigen - Final 05/23/24 11:45 Urine, Random Streptococcus pneumoniae Antigen (M - Final 05/21/24 09:32 Urine, Random Urine Culture - Final Culture exhibits no growth. 05/21/24 09:15 Blood Culture (Wb) - Anticubital Left Blood Culture - Preliminary No growth in 48 hours. ABG Data ABG results: ABG 05/25/24 10:39 Specimen Type ART Sample Site L Radial pH 7.42 Bicarbonate Actual 19.2 L Total CO2 20 Base Excess -5 L O2 Saturation 97 O2 % 21.0 ABG pCO2 29.5 L ABG pO2 86 Sammy Test Positive O2 Delivery Device Not entered Vent Mode Not entered Radiography Diagnostic Testing: Radiology Impression Echocardiogram 05/24/24 08:23 Interpretation Summary The estimated ejection fraction is 55 %. There is evidence of diastolic dysfunction. Mild (1+) mitral valve insufficiency. Mild (1+) aortic valve insufficiency. Ordering Physician: Odalys Mccain Performed By: Marlys Cheng RDCS Chest/Abdomen/Pelvis CT 05/24/24 08:41 IMPRESSION: Mild right pleural effusion with right lower lobe opacity, concerning for pneumonia. Anasarca with mild ascites and generalized intra-abdominal edema. Moderate hiatal hernia. Colonic diverticulosis without acute diverticulitis. Cholelithiasis. Leiomyomatous uterus. Electronically Signed: Chrissy Rodgers MD at 14:28 EDT , Rhythm Strip Rhythm Strip: A-fib Rate: 75 Ectopy: None and - (Short run of VT noted 05/23/2024.) Physical Exam Const alert, oriented x3 and no apparent distress General Appearance: cooperative HEENT normocephalic, head/scalp atraumatic, hearing grossly normal bilaterally, moist oral mucous membranes and oropharynx normal Eyes PERRL, EOMs intact bilaterally and conjunctivae normal Neck no lymphadenopathy and supple Lymph Lymphatic: no lymphadenopathy noted Resp Resp Narrative: diminished breath sounds bilaterally, no wheezes, bilateral crackles. ON room air. Tachypneic. Cardio regular rate, regular rhythm, S1 normal heart sound, S2 normal heart sound and no murmurs GI normal to inspection, nondistended, normoactive bowel sounds, soft to palpation, non-tender and non-distended Extremity Extremity Narrative: both LEs wrapped in bandage Skin Skin Narrative: as under extremities Neuro oriented x3, CN's II-XII intact bilaterally and moves all extremities Sensorium / Orientation: awake and alert Motor Exam: strength 5/5 throughout Psych affect normal Appearance: appropriate Assessment & Plan Assessment/Plan (1) Sepsis: QUALIFIERS: Sepsis acute organ dysfunction status: without acute organ dysfunction (2) Cellulitis of leg, right: PLAN: Plan #Sepsis due to cellulitis of the RLE vinh right lower lobe pneumonia * WBC today has trended up to 18.6 * The swelling has improved but the redness still persists. I do wonder if this may be some form of vasculitic process. * Patient does not seem to be improving. CT of the chest abdomen and pelvis done did show mild right pleural effusion with right lower lobe opacity concerning for possible pneumonia, anasarca with mild ascites and generalized intra-abdominal edema as well as moderate hiatal hernia, colonic diverticulosis without active acute diverticulitis and cholelithiasis * will broaden antibiotics to IV meropenem as patient does not seem to be improving on IV unasyn. * ID consulted; will see patient on Monday. * Duplex of lower extremities showed no evidence of DVT * She was short of breath today and I discussed with nephrology. Will give IV Lasix 100 mg x 1 and continue with Lasix drip at 20 mg... Nephrology, this is to try to get her to push out some fluids. If creatinine worsens, then she would need dialysis which she is already heading towards. * Check urine for strep and Legionella * #LOKI * Creatinine has trended up further today to 4.53 * FeUrea showed intrinsic kidney disease * Patient's rash on the lower extremity does seem to appear to be possibly vasculitic as she is not really responding to antibiotics. * Renal USG showed no hydronephrosis or 1.1 x 1cm left renal cyst * nephrology on board. Patient is heading towards dialysis and patient and family advised about that today. * * #Cellulitis of the RLE: as above #Non sustained ventricular tachycardia * EKG done on admission showed some ST elevations in the inferior leads it was read as critical alert ST elevated [place]. ED doctor did discuss with the patient access registrar Dr Ann who reviewed the images and did not think that patient had ST elevation MA of the inferior region. * Patient also denies any chest pain. * she however did have a 22 beat run of ventricular tachycardia today and had some shortness of breath with sitting up. * 2D echo showed EF of 55% with no evidence of diastolic dysfunction. * Cardiology did see patient; per cardiology, would consider ruling out ischemia with a pharmacologic stress test at some point in time. This could be done in the ambulatory setting up prior to discharge depending on recovery of her renal function and treatment for infectious process. * #Hypokalemia: resolved. #Elevated bilirubin * resolved. * hepatitis panel is negative * liver ultrasound showed cholelithiasis. * * #Atrial fibrillation: on metoprolol and cardizem. On eliquis. DVT prophylaxis; already on eliquis Code status: full code * Family wishes to switch CODE STATUS to DNR CCA Charges/Coding Visit Charges Inpatient E&M: 14059 Subs Hosp L3
--- NOTE | 2024-05-25 18:23 | PCM.PN.REN ---
Subjective Subjective Came over to follow-up on acute kidney injury. She appears to be agitated, she is oriented only x 1-1/2. She knows that she is in [place], knows her name, but does not know the place or date. She has not been eating. She is still in the room air but appears to be tachypneic with episodes of what appears to be sleep apnea. Objective Data Objective Data Vital Signs: Vital Signs Temp Pulse Resp BP Pulse Ox O2 Del Method 97.1 F L 76 32 H 112/69 98 Room Air 05/25/24 09:30 05/25/24 13:00 05/25/24 13:00 05/25/24 13:00 05/25/24 13:00 05/25/24 13:00 Oxygen Delivery Method Room Air Weight: 80.739 kg Body Mass Index (BMI) 31.5 Intake & Output: Intake and Output for Last 24 Hours 05/23/24 05/24/24 05/25/24 23:59 23:59 23:59 Intake Total 2284 / 2284 1207.84 / 1207.84 1180 / 1180 Output Total 100 / 100 450 / 450 150 / 150 Balance 2184 / 2184 757.84 / 757.84 1030 / 1030 Lab / Micro Data Attestation: I reviewed the patient's lab results. 05/25/24 05:48 05/25/24 05:48 Labs: Laboratory Results - last 24 hr 05/24/24 05:25: Complement C3 140 05/25/24 05:48: WBC 18.6 H, RBC 3.17 L, Hgb 8.7 L, Hct 27.6 L, MCV 87.1, MCH 27.4, MCHC 31.5 L, RDW Std Deviation 48.4 H, RDW Coeff of Erica 15.3 H, Plt Count 522 H, MPV 9.1, Neut % (Auto) Not Reportable, Absolute Neuts (auto) 13.7 H, Absolute Lymphs (auto) 2.60, Total Counted 100, Neutrophils % (Manual) 74 H, Lymphocytes % (Manual) 14 L, Monocytes % (Manual) 3, Metamyelocytes % 6 H, Myelocytes % 3 H, Nucleated RBCs/100 WBC 4, Diff Path Review May foll, Platelet Estimate SLT INC, Polychromasia 1+, Hypochromasia RARE, Anisocytosis 1+, Target Cells 1+, Ovalocytes 1+, Sodium 137, Potassium 4.6, Chloride 108 H, Carbon Dioxide 20.0 L, Anion Gap 9, BUN 98 H, Creatinine 4.53 H, Estim Creat Clear Calc 10.13, Est GFR (MDRD) Af Amer 12 L, Est GFR (MDRD) Non-Af 10 L, BUN/Creatinine Ratio 21.6 H, Glucose 163 H, Calcium 9.6, Total Creatine Kinase 14 L Micro: Microbiology 05/23/24 11:45 Urine, Random Legionella Antigen - Final 05/23/24 11:45 Urine, Random Streptococcus pneumoniae Antigen (M - Final 05/21/24 09:32 Urine, Random Urine Culture - Final Culture exhibits no growth. 05/21/24 09:15 Blood Culture (Wb) - Anticubital Left Blood Culture - Preliminary No growth in 48 hours. ABG Data ABG results: ABG 05/25/24 10:39 Specimen Type ART Sample Site L Radial pH 7.42 Bicarbonate Actual 19.2 L Total CO2 20 Base Excess -5 L O2 Saturation 97 O2 % 21.0 ABG pCO2 29.5 L ABG pO2 86 Sammy Test Positive O2 Delivery Device Not entered Vent Mode Not entered Rhythm Strip Rhythm Strip: A-fib Rate: 75 Ectopy: None and - (Short run of VT noted 05/23/2024.) Physical Exam Const General Appearance: in distress Positive for mild Orientation / Consciousness: oriented to person HEENT normocephalic Head and Scalp: atraumatic Resp Effort and Inspection: respiratory distress Auscultation: diminished lung sounds bilateral Cardio no murmurs and no rub GI non-tender Auscultation: normoactive bowel sounds Psych Attitude: uncooperative Memory / Cognition: cognition impaired Assessment & Plan Assessment/Plan (1) Acute renal failure (ARF): QUALIFIERS: Acute renal failure type: unspecified Qualified Code(s): N17.9 - Acute kidney failure, unspecified PLAN: Creatinine continues to go up, but she started to make urine while on Lasix. She is not acidotic and not hyperkalemic. So we do not necessarily need to do dialysis today. To Lasix drip we can add thiazide diuretics to augment the diuresis if needed.
[2024-05-25] MEDS: 0.9% Normal Saline (500mL Bag) 500 ML 999 ML IV (23:00)
--- NOTE | 2024-05-25 23:12 | NURSING ---
Daughter called at home and notified pt is not doing well. Daughter will be in shortly.
[2024-05-25] MEDS: Meropenem 500 MG in 0.9% Normal Saline (50mL MB+) 50 ML 999 MG IV (23:14)
--- NOTE | 2024-05-25 23:54 | PCM.HOSP.N ---
Hospitalist Note Patient restless, BP low, administered 500 cc NS bolus with BP improvement.
--- NOTE | 2024-05-26 00:22 | NURSING ---
Family is here and would like to talk with DR nicole about code status and something to help pt relax. Dr nicole notified. Will meet with family shortly.
[2024-05-26 00:23] VITALS: BP 97/55; PULSE 84; RESP 28; TEMP 36.1; O2SAT 99
[2024-05-26] MEDS: LORazepam 2 MG/ML Syringe 0.5 MG IV (01:06)
--- NOTE | 2024-05-26 01:50 | NURSING ---
Tele removed as ordered. Family educated on new plan of care. Verbalized understanding. Pt repositioned for comfort.
[2024-05-26] MEDS: Morphine 2 MG/ML Syringe IV (03:07)
--- NOTE | 2024-05-26 03:57 | PCM.HOSP.N ---
Hospitalist Note Date of : 05/26/24 Time of : 5811
--- NOTE | 2024-05-26 04:08 | NURSING ---
Pt passed at 05:54, Dr Brown notified and family called (Macey Brown, daughter) [email or web address] and send all personal belongings with pt to the home.
--- NOTE | 2024-05-26 14:42 | DS.PCM_ITS ---
Providers Date of Admission: 05/21/24 Date of Discharge: 05/26/24 Primary Care Physician: Dr. Jaylen Peralta MD Consultations 05/21/24 13:21 Consult: Onc/Wound/cloth mercerizer operator Routine Comment: 05/24/24 08:08 Consult: Nephrology Routine Consulting Provider: Rosa Rebolledo Reason for Consult: LOKI EMERGENT Consult: No Notified: Yes Date Notified: 05/24/24 Time Notified: 08:08 Method of Notification: Text 05/24/24 08:39 Consult: Cardiology Routine Consulting Provider: Jhonatan Lovell Reason for Consult: ventricular tachycardia EMERGENT Consult: No Notified: Yes Date Notified: 05/24/24 Time Notified: 08:39 Method of Notification: Verbal Reason For Visit: SEPSIS, RLE CELLULITIS Diagnosis Discharge Diagnosis (1) Acute renal failure (ARF): Status: Acute Code(s): N17.9 - Acute kidney failure, unspecified Qualifiers: Acute renal failure type: unspecified Qualified Code(s): N17.9 - Acute kidney failure, unspecified Plan #Sepsis due to cellulitis of the RLE vinh right lower lobe pneumonia * WBC today has trended up to 18.6 * The swelling has improved but the redness still persists. I do wonder if this may be some form of vasculitic process. * Patient does not seem to be improving. CT of the chest abdomen and pelvis done did show mild right pleural effusion with right lower lobe opacity concerning for possible pneumonia, anasarca with mild ascites and generalized intra-abdominal edema as well as moderate hiatal hernia, colonic diverticulosis without active acute diverticulitis and cholelithiasis * will broaden antibiotics to IV meropenem as patient does not seem to be improving on IV unasyn. * ID consulted; will see patient on Monday. * Duplex of lower extremities showed no evidence of DVT * She was short of breath today and I discussed with nephrology. Will give IV Lasix 100 mg x 1 and continue with Lasix drip at 20 mg... Nephrology, this is to try to get her to push out some fluids. If creatinine worsens, then she would need dialysis which she is already heading towards. * Check urine for strep and Legionella * #LOKI * Creatinine has trended up further today to 4.53 * FeUrea showed intrinsic kidney disease * Patient's rash on the lower extremity does seem to appear to be possibly vasculitic as she is not really responding to antibiotics. * Renal USG showed no hydronephrosis or 1.1 x 1cm left renal cyst * nephrology on board. Patient is heading towards dialysis and patient and family advised about that today. * * #Cellulitis of the RLE: as above #Non sustained ventricular tachycardia * EKG done on admission showed some ST elevations in the inferior leads it was read as critical alert ST elevated RI. ED doctor did discuss with the registered respiratory therapist Dr Ann who reviewed the images and did not think that patient had ST elevation RI of the inferior region. * Patient also denies any chest pain. * she however did have a 22 beat run of ventricular tachycardia today and had some shortness of breath with sitting up. * 2D echo showed EF of 55% with no evidence of diastolic dysfunction. * Cardiology did see patient; per cardiology, would consider ruling out ischemia with a pharmacologic stress test at some point in time. This could be done in the ambulatory setting up prior to discharge depending on recovery of her renal function and treatment for infectious process. * #Hypokalemia: resolved. #Elevated bilirubin * resolved. * hepatitis panel is negative * liver ultrasound showed cholelithiasis. * * #Atrial fibrillation: on metoprolol and cardizem. On eliquis. DVT prophylaxis; already on eliquis Code status: full code * Family wishes to switch CODE STATUS to DNR CCA Medications at Discharge Home Medications apixaban 5 mg tablet (Eliquis) 5 mg PO BID blood thinner 05/21/24 diltiazem HCl 120 mg capsule,extended release 24 hr 120 mg PO DAILY blood pressure 05/21/24 metoprolol tartrate 50 mg tablet 50 mg PO BID blood pressure 05/21/24 torsemide 20 mg tablet 20 mg PO DAILY edema 05/21/24 Hospital Course Operations None Procedures None Summary of Care Provided Minutes Spent on Discharge: 55 Weight / BMI Weight Weight: 177 lb 15.984 oz Body Mass Index (BMI) 31.5 ABG / Lab / Microbiology Data 05/25/24 05:48 05/25/24 05:48 Laboratory: Laboratory Results - last 24 hr 05/22/24 06:11: Hep Bs Antibody , Hepatitis C Ab (EIA) 05/25/24 05:48: Complement C4 26 Microbiology: Microbiology 05/21/24 09:15 Blood Culture (Wb) - Anticubital Left Blood Culture - Final No growth in 5 days. 05/23/24 11:45 Urine, Random Legionella Antigen - Final 05/23/24 11:45 Urine, Random Streptococcus pneumoniae Antigen (M - Final 05/21/24 09:32 Urine, Random Urine Culture - Final Culture exhibits no growth. Meaningful Use Info Ischemic Stroke Statin Dosing Therapy Reference: STATIN DOSE THERAPY REFERENCE: * Patients > 75 years receive moderate or high dose statin therapy. * Patients 75 years or YOUNGER should receive HIGH intensity statin dose unless contraindicated. You will be required to document reason for non-treatment if statin daily dose does not meet guidelines. HIGH DOSE STATIN THERAPY DAILY Atorvastatin > than or = to 40 mg Rosuvastatin > than or = to 20 mg Amlodipine + Atorvastatin > than or = to 2.5/40 mg Ezetimibe + Simvastatin 10/80 mg Simvastatin 80mg Discharge Plan Admission Admit Date/Time: 05/21/24 11:31 Attending Provider: Odalys Mccain Primary Care Provider: Jaylen Peralta Consulting Providers: Rosa Rebolledo; Jhonatan Lovell Disposition Disposition (needs filled in before D/C Order can be placed):
--- NOTE | 2024-05-26 14:50 | EXP.PCM_ITS ---
Preliminary Cause of Preliminary Cause of Preliminary Cause of : Acute cardiopulmonary arrest due to nonsustained ventricular tachycardia and sepsis due to right lower extremity cellulitis and community-acquired pneumonia Date of Admission: 05/21/24 Date of : 05/26/24 Principle Diagnosis Problem List: Active and Suspected Problems (Updated 05/24/24 @ 10:[address] Kuldip Price MD) LOKI (acute kidney injury) (Acute) Acute renal failure (ARF) (Acute) Ventricular tachycardia (paroxysmal) (Acute) A-fib (Acute) Cellulitis of leg, right (Acute) Sepsis (Acute) Hospital Course SUSHMA COOPER, is a 78 F with an extensive PMH as outlined who presents via the ED with a complaint of right lower extremity redness and swelling. She said her symptoms had been going on for just one day. She said she was recently admitted at [facility] recently, and said she was admitted there from swelling lower extremities. She says she does not remember the fine details of which she was treated for as she did not really pay much attention. She was discharged home and says she noticed yesterday that she had redness of her right lower extremity. The redness gradually worsened and her leg was also swollen and painful so she came into the ED. She denied any fever or chills, palpitations, nausea or vomiting or any other symptoms. Review of systems otherwise negative. She denied any trauma to her right lower extremity and denies any history of blood clots. Vitals in the ED were BP of 163/97, [place] of 112, RR of 24 and temp of 99.2F. She was saturating at 98% on room air. CBC showed wbc of 14.2, Hb of 12.3, platelets of 273. INR was 2.2. Chemistry showed sodium of 135, potassium of 2.8 and bicarb of 33. Cr was 0.88. Total bilirubin was 3.7 and calcium was 11.4. Urinalysis showed no evidence of UTI. Xray of the tibia and fibula showed mild generalised soft tissue swelling around the calf and ankle. CXR showed no acute cardiopulmonary pathology and a small right pleural effusion vs pleural thickening blunting hte right costoprehnic sulcus, as well as cardiomegaly. She was admitted to be managed for sepsis of the RLE. She was started on IV vancomycin. Patient initially appeared to improve when vancomycin was started. However her creatinine trended upwards and worsened. Vancomycin was therefore discontinued. Nephrology was consulted and nephrology thought that she had ATN due to fluctuations in her BP and possible vancomycin related kidney injury. Antibiotics were switched to Unasyn but subsequently broadened to IV meropenem as patient's lower extremity remained erythematous and her white cell count continues to trend upwards. She had had duplex of the lower extremity done which showed no evidence of any DVT. There was also concern for right lower lobe pneumonia as chest CT of the chest abdomen and pelvis done showed a mild right pleural effusion with right lower lobe opacity concerning for possible pneumonia as well as anasarca with mild ascites and generalized intra-abdominal edema. ID was consulted but was unable to see patient as it was the weekend and was suspected that they would see patient on Monday. Hospital course was also complicated by nonsustained ventricular tachycardia. EKG done on admission had shown some ST elevations in the inferior leads and was initially read as critical alert ST elevation AK. This was discussed with the ham doctor on-call Dr. Ann who reviewed the images and did not think the patient had ST elevation [place]. She did have a 22 beat run of ventricular tachycardia during the hospital stay. He had 2D echo done which showed EF of 55% with no evidence of diastolic dysfunction. Cardiology was consulted and reviewed patient and recommended ruling out an ischemic pathology with the pharmacologic stress test at some point in time and this would be done in the ambulatory setting would be done prior to discharge depending on recovery of her renal function. She did have elevated bilirubin and hepatitis panel done was negative. Liver ultrasound done showed cholelithiasis but she had a negative Neves sign. Patient and family were counseled about the fact that with her worsening kidney function she was heading towards dialysis. Family at that point decided to switch her to DNR CCA no intubation on 05/25/2024. She was started on Lasix drip after being given IV Lasix 100 mg x 1. Nephrology recommendation in light of her increasing fluid retention. Family subsequently came back and decided that they wanted to switch CODE STATUS to DNR CC. CODE STATUS was therefore switched to DNR CC. Patient at 3:54 AM on 05/26/2024. Cause of is acute cardiopulmonary arrest in the setting of nonsustained ventricular tachycardia with contributing causes being sepsis due to right lower extremity cellulitis and community-acquired pneumonia. Visit Charges Inpatient E&M: 62692 Disch Hosp
[2024-05-27 11:01] LABS: Pathologist Review Reviewed
[2024-05-28 16:10] LABS: HEP B SURFACE ANTIBODY - REF Non Reactive (.)
== END 2024-05-26 03:54 | DRG 871 ==
LOC: ED 09:29 → ICU 11:59 → PCU 18:28
PROVIDERS: Internal Medicine Nephrology; Admitting Provider Student in an Organized Health Care Education/Training Program; Emergency Provider Emergency Medicine; PCP Family Medicine; Visit Provider Student in an Organized Health Care Education/Training Program
DX: A41.9 Sepsis, unspecified organism (principal); J18.9 Pneumonia, unspecified organism; I47.20 Ventricular tachycardia, unspecified; E87.1 Hypo-osmolality and hyponatremia; N17.9 Acute kidney failure, unspecified; L03.115 Cellulitis of right lower limb; I46.9 Cardiac arrest, cause unspecified; I48.91 Unspecified atrial fibrillation; E83.52 Hypercalcemia; E87.6 Hypokalemia; I25.2 Old myocardial infarction; K80.20 Calculus of gallbladder without cholecystitis without obstruction; Z79.01 Long term (current) use of anticoagulants; Z87.891 Personal history of nicotine dependence; R94.31 Abnormal electrocardiogram [ECG] [EKG]; Z79.899 Other long term (current) drug therapy
CPT/HCPCS: 36415; 36569; 36600; 71045; 71250; 73590; 74176; 76705; 76770; 80048; 80053; 80076; 80202; 81001; 82248; 82550; 82570; 82803; 83605; 83735; 83880; 84156; 84300; 84540; 85025; 85610; 85730; 86160; 86706; 86803; 87040; 87086; 87340; 87449; 93005; 93306; 93971; 97162; 97166; 97530; 97535; 97802; 99284; J2185; J7030; J7040; J7050; Q9957; A4216; C8929; J0295; J1940